=== PATIENT | female | born 1940 | race Caucasian/White ===

== ENCOUNTER 2017-09-22 17:32 | Emergency (ER) | payer MEDICARE ==
[2017-09-22] MEDS ORDERED: ANTIVERT 25 MG PO ONE (17:51)
[2017-09-22] MEDS ORDERED: ANTIVERT 25 MG ONE (17:57)
--- NOTE | 2017-09-22 17:57 | ERPHSYRPT ---
- History of Present Illness Source: patient Exam Limitations: no limitations Patient Subjective Stated Complaint: Pt states "I have vertigo and today it is really bad. I am out of my antivert and have been for a long time. IT gets worse when I lean over or move my head and I think it is in my left ear too" Triage Nursing Assessment: Pt alert and oriented X 3, skin pwd. Pt able to stand with assistance, speaks in full clear sentences. Hx Tetanus, Diphtheria Vaccination/Date Given: No Hx Influenza Vaccination/Date Given: Yes Hx Pneumococcal Vaccination/Date Given: Yes Immunizations Up to Date: Yes <SCOTT WOOTEN - Last Filed: 09/22/17 18:24> <ABELARDO KASPER - Last Filed: 09/22/17 20:59> - History of Present Illness Time Seen by Provider: 09/22/17 17:54 Physician History: mild to mod dizziness today, worse when turning her head, no injury, no hearing loss, no fever, no pain, +N, no emesis (SCOTT WOOTEN) Allergies/Adverse Reactions: cortisone Allergy (Mild, Verified 09/22/17 17:55) Home Medications: Allopurinol 300 mg [Zyloprim 300 mg] 300 mg PO DAILY 09/22/17 [History] Diazepam 2 mg PO HS 09/22/17 [History] Doxepin HCl 75 mg PO DAILY 09/22/17 [History] Duloxetine HCl [Cymbalta] 30 mg PO DAILY 09/22/17 [History] Metoprolol Succinate 25 mg PO DAILY 09/22/17 [History] Spironolactone [Aldactone] 25 mg PO DAILY 09/22/17 [History] - Past Medical History Pertinent Past Medical History: Yes Neurological History: No Pertinent History ENT History: No Pertinent History Cardiac History: Hypertension Respiratory History: No Pertinent History Endocrine Medical History: Hypothyroidism Musculoskeletal History: No Pertinent History GI Medical History: GERD History: Renal Disease Psycho-Social History: No Pertinent History Female Reproductive Disorders: No Pertinent History - Past Surgical History Past Surgical History: Yes Other Surgical History: hysterectomy, thyroid, eye, tonsils - Social History Smoking Status: Never smoker Exposure to second hand smoke: No Drug Use: none Patient Lives Alone: No - Female History Hx Last Menstrual Period: no more Hx Now: No <SCOTT WOOTEN - Last Filed: 09/22/17 18:24> - Review of Systems Constitutional: No Fever Eyes: No Symptoms Ears, Nose, & Throat: No Ear Pain Respiratory: No Symptoms Cardiac: No Symptoms Abdominal/Gastrointestinal: Nausea, No Abdominal Pain, No Vomiting Musculoskeletal: No Back Pain, No Neck Pain, No Fall Skin: No Symptoms Neurological: Dizziness, Vertigo, No Headache, No Speech Changes <SCOTT WOOTEN - Last Filed: 09/22/17 18:24> Physical Exam - Ellen Coma Scale Best Eye Response ([place]): (4) open spontaneously Best Verbal Response ([place]): (5) oriented Best Motor Response ([place]): (6) obeys commands [place] Total: 15 - Physical Exam General Appearance: no apparent distress Eye Exam: bilateral eye: PERRL, EOMI Ears, Nose, Throat Exam: normal ENT inspection Neck Exam: normal inspection Respiratory: normal breath sounds Cardiovascular: regular rate/rhythm Gastrointestinal: soft, No tenderness Extremity Exam: normal inspection 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, 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, 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 Exam: normal hearing, normal speech, PERRL Skin Exam: normal color, warm, dry SpO2 Interpretation: normal SpO2: 96 Oxygen Delivery: Room Air <SCOTT WOOTEN - Last Filed: 09/22/17 18:24> - Nursing Vital Signs Nursing Vital Signs: Initial Vital Signs Temperature 97.8 F 09/22/17 17:41 Pulse Rate 84 09/22/17 17:41 Respiratory Rate 18 09/22/17 17:41 Blood Pressure 158/74 09/22/17 17:41 O2 Sat by Pulse Oximetry 96 09/22/17 17:41 Pain Scale Pain Intensity 0 Ordered Tests: Active Orders 24 hr Category Date Time Status Yard Foreman STAT Care 09/22/17 17:53 Active EKG-ER Only STAT Care 09/22/17 17:51 Active IV Insertion STAT Care 09/22/17 17:51 Active HEAD WITHOUT CONTRAST [CT] Stat Exams 09/22/17 17:53 Taken CBC W DIFF Stat Lab 09/22/17 18:31 Completed CMP Stat Lab 09/22/17 18:31 Completed TROPONIN Q3H Lab 09/22/17 18:31 Completed TROPONIN Q3H Lab 09/22/17 21:00 Ordered TROPONIN Q3H Lab 09/23/17 00:00 Ordered TROPONIN Q3H Lab 09/23/17 03:00 Ordered TROPONIN Q3H Lab 09/23/17 06:00 Ordered Medication Summary Discontinued Medications Generic Name Dose Route Start Last Admin Trade Name John PRN Reason Stop Dose Admin Meclizine HCl 25 mg 09/22/17 17:51 09/22/17 18:09 Antivert 25 Mg PO 09/22/17 17:52 25 mg STAT ONE Administration Meclizine HCl Confirm 09/22/17 17:57 Antivert 25 Mg Administered 09/22/17 17:58 Dose 25 mg .ROUTE .STK-MED ONE Lab/Rad Data: Laboratory Result Diagrams 09/22/17 18:31 09/22/17 18:31 Laboratory Results 09/22/17 09/22/17 09/22/17 Range/Units 18:31 18:31 18:31 WBC 7.4 (4.0-10.5) K/mm3 RBC 3.60 L (4.1-5.4) M/mm3 Hgb 10.7 L (12.0-16.0) gm/dl Hct 33.7 L (35-47) % MCV 93.6 (78-100) fl MCH 29.7 (26-32) pg MCHC 31.8 L (32-36) g/dl RDW 14.1 H (11.5-14.0) % Plt Count 189 (150-450) K/mm3 MPV 9.7 H (6-9.5) fl Gran % 50.3 (36.0-66.0) % Lymphocytes % 38.9 (24.0-44.0) % Monocytes % 7.2 (0.0-12.0) % Eosinophils % 3.3 (0.00-5.0) % Basophils % 0.3 (0.0-0.4) % Basophils # 0.02 (0-0.4) Sodium 141 (136-145) mEq/L Potassium 5.1 (3.5-5.1) mEq/L Chloride 105 (98-107) mEq/L Carbon Dioxide 25.7 (21-32) mEq/L Anion Gap 15.1 H (5-15) MEQ/L BUN 23 H (9-20) mg/dL Creatinine 1.93 H (0.55-1.30) mg/dl Estimated GFR 27 ML/MIN Glucose 151 H (70-110) MG/DL Calcium 9.0 (8.5-10.1) mg/dL Total Bilirubin 0.30 (0.2-1.0) mg/dL AST 16 (15-37) U/L ALT 20 (12-78) U/L Alkaline Phosphatase 78 (46-116) U/L Troponin I < 0.017 (0.000-0.056) ng/ml Serum Total Protein 7.8 (6.4-8.2) gm/dL Albumin 3.9 (3.4-5.0) g/dL <SCOTT WOOTEN - Last Filed: 09/22/17 18:24> <ABELARDO KASPER - Last Filed: 09/22/17 20:59> - Progress Progress Note: 09/22/17 18:[address] Kasper at 19:00 (SCOTT WOOTEN) 09/22/17 20:54 This is a 77-year-old white female with history of high blood pressure hypothyroidism GERD renal disease She arrives with complaint of vertigo since 7:30 this morning worse when she moves her head around and walks. States that she has had similar symptoms in the past and has taken Antivert however she did not have any she is not sick no vomiting she is not having any problems moving. She has not had any speech problems. Past medical history includes hypertension hypothyroidism GERD renal disease. Past surgical history includes hysterectomy thyroid surgery eye surgery and tonsils. Physical examination well-developed well-nourished white female she is alert oriented 3. Head is atraumatic normocephalic. Eyes PERRLA EOMI fundi are unremarkable. Ears TM is monroy intact bilaterally. Nose is clear. Throat is clear. Neck is supple full range of motion. Lungs are clear to auscultation and equal bilaterally. Heart regular rate and rhythm without murmur. Abdomen soft nontender nondistended positive bowel sounds. Extremities full range of motion pulse equal symmetrical 2 over 4. Neuro patient alert, oriented 3, cranial nerves II through XII are intact, glazier structural glass are equal and symmetrical 5 over 5, stent finger-nose within normal limits , no facial droop, [place] normal, sensation intact to all extremities. Labs EKG sinus rhythm 82 bpm normal axis no acute ST or T wave changes noted essentially normal EKG head CT stable nonacute senile brain compared to June 17, 2014 patient's chemistry is essentially normal CBC is normal troponin is within normal limits Impression vertigo Plan Will have nurse ambulate patient plan on discharge with Antivert prescription (ABELARDO KASPER) <SCOTT WOOTEN - Last Filed: 09/22/17 18:24> - Departure Time of Disposition: 20:57 Departure Disposition: Home Critical Care Time: No <ABELARDO KASPER - Last Filed: 09/22/17 20:59> - Departure Clinical Impression: Vertigo Condition: Fair Referrals: RENATA WILKINSON MD [Primary Care Provider] - Instructions: Vertigo Additional Instructions: Return home. Plenty of fluids. Antivert 25 mg orally 3 times a day for 10 days. Follow-up with your family doctor contact your family doctor and arrange an appointment tomorrow. Return for acute distress or for severe symptoms. Prescriptions: Meclizine HCl 25 mg [Antivert 25 mg] 25 mg PO TID PRN #20 tablet
[2017-09-22 18:33] LABS: BASOPHIL % 0.3 % (0.0-0.4); Eosinophil % 3.3 % (0.00-5.0); Granulocytes % 50.3 % (36.0-66.0); Lymphocytes % 38.9 % (24.0-44.0); Mean Cell Volume 93.6 fl (78-100); Mean Corpuscular Hemoglobin 29.7 pg (26-32); Mean Platelet Volume 9.7 fl (6-9.5); Monocytes % 7.2 % (0.0-12.0); Platelet Count 189 K/mm3 (150-450); Red Cell Distribution Width 14.1 % (11.5-14.0); White Blood Count 7.4 K/mm3 (4.0-10.5)
[2017-09-22 19:08] LABS: ALBUMIN 3.9 g/dL (3.4-5.0); ANION GAP 15.1 MEQ/L (5-15); BILIRUBIN,TOTAL 0.3 mg/dL (0.2-1.0); Carbon Dioxide 25.7 mEq/L (21-32); Potassium 5.1 mEq/L (3.5-5.1); Total Protein 7.8 gm/dL (6.4-8.2)
[2017-09-22 22:35] VITALS: BP 170/79; PULSE 80; O2SAT 98
--- NOTE | 2017-09-23 08:34 | XRAY ---
Indication: Vertigo. Multiple contiguous axial images obtained through the head without contrast. Comparison: June 17, 2014. Again age-appropriate global atrophy and moderate periventricular degenerative micro-ischemia bilaterally. No acute intracranial hemorrhage, abnormal extra-axial fluid collection, or mass effect. Fourth ventricle is midline without hydrocephalus. Bony calvarium intact. Visualized paranasal sinuses and mastoid air cells are clear. Impression: Again nonacute senile brain. CT DI 68.81
== END 2017-09-22 22:35 | disposition home or self-care (01) ==
LOC: ED 17:32
DX: R42 Dizziness and giddiness (principal); Z79.899 Other long term (current) drug therapy; I10 Essential (primary) hypertension; E03.9 Hypothyroidism, unspecified
CPT/HCPCS: 36415; 70450; 80053; 84484; 85025; 93005; 93041; 99284; 99285; A9270-GY

== ENCOUNTER 2018-09-24 12:55 | Emergency (ER) | payer MEDICARE ==
--- NOTE | 2018-09-24 13:09 | ERPHSYRPT ---
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 following her dizzy spell, she was briefly confused but this resolved spontaneously as well. pt states she is back to her baseline and feeling well but wants to be evaluated. pt denies headache, denies cp, denies abd pain. Timing/Duration: today Severity: mild Character of Deficits: none (sx of dizziness and confusion resolved completely) Deficits: no difficulties Baseline/Normal Cognition: alert 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 Current Cognition: alert 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 Associated Symptoms: confusion, other (b rief izziness), No loss of consciousness, No nausea, No vomiting, No weakness, No insomnia Allergies/Adverse Reactions: Sulfa (Sulfonamide Antibiotics) Allergy (Intermediate, Verified 09/24/18 13:24) cortisone Allergy (Mild, Verified 09/24/18 13:23) Home Medications: Allopurinol 300 mg [Zyloprim 300 mg] 300 mg PO DAILY 09/22/17 [History] Doxepin HCl 75 mg PO DAILY 09/22/17 [History] Duloxetine HCl [Cymbalta] 30 mg PO DAILY 09/22/17 [History] Metoprolol Succinate 25 mg PO DAILY 09/22/17 [History] Spironolactone [Aldactone] 25 mg PO DAILY 09/22/17 [History] diazePAM [Diazepam] 2 mg PO HS 09/22/17 [History] Hx Tetanus, Diphtheria Vaccination/Date Given: No Hx Influenza Vaccination/Date Given: Yes Hx Pneumococcal Vaccination/Date Given: Yes - Review of Systems Constitutional: No Symptoms Eyes: No Symptoms Ears, Nose, & Throat: No Symptoms Respiratory: No Symptoms Cardiac: No Symptoms Abdominal/Gastrointestinal: No Symptoms Genitourinary Symptoms: No Symptoms Musculoskeletal: No Symptoms Skin: No Symptoms Neurological: Dizziness, Other (confusion) Psychological: No Symptoms Endocrine: No Symptoms Hematologic/Lymphatic: No Symptoms Immunological/Allergic: No Symptoms All Other Systems: Reviewed and Negative - Past Medical History Pertinent Past Medical History: Yes Neurological History: No Pertinent History ENT History: No Pertinent History Cardiac History: Hypertension Respiratory History: No Pertinent History Endocrine Medical History: Hypothyroidism Musculoskeletal History: No Pertinent History GI Medical History: GERD History: Renal Disease Psycho-Social History: No Pertinent History Female Reproductive Disorders: No Pertinent History - Past Surgical History Past Surgical History: Yes Cardiac: No Pertinent History Respiratory: No Pertinent History Gastrointestinal: No Pertinent History Genitourinary: No Pertinent History Musculoskeletal: No Pertinent History Female Surgical History: No Pertinent History Other Surgical History: hysterectomy, thyroid, eye, tonsils - Social History Smoking Status: Never smoker Exposure to second hand smoke: No Drug Use: none Patient Lives Alone: No - Nursing Vital Signs Nursing Vital Signs: Initial Vital Signs Temperature 98.5 F 09/24/18 12:55 Pulse Rate 70 09/24/18 12:55 Respiratory Rate 18 09/24/18 12:55 Blood Pressure 125/58 09/24/18 12:55 O2 Sat by Pulse Oximetry 97 09/24/18 12:55 Pain Scale Pain Intensity 0 - Ellen Coma Scale Best Eye Response ([place]): (4) open spontaneously Best Verbal Response ([place]): (5) oriented Best Motor Response ([place]): (6) obeys commands [place] Total: 15 - Physical Exam General Appearance: no apparent distress, alert Eye Exam: bilateral eye: normal inspection, PERRL, EOMI Ears, Nose, Throat Exam: normal ENT inspection, TMs normal, moist mucous membranes Neck Exam: normal inspection, non-tender, supple, full range of motion Respiratory: normal breath sounds, lungs clear, airway intact, No chest tenderness, No respiratory distress, No accessory muscle use, No rhonchi, No wheezing, No stridor Cardiovascular: regular rate/rhythm, normal heart sounds, normal peripheral pulses Gastrointestinal: soft, normal bowel sounds, No tenderness, No guarding, No rebound Pelvic Exam: not done Rectal Exam: not done Back Exam: normal inspection, normal range of motion, No CVA tenderness, No vertebral tenderness Extremity Exam: normal inspection, normal range of motion, pelvis stable 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, 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, 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 Exam: normal hearing, normal speech, PERRL, tongue midline Coordination/Gait: normal finger to nose, normal gait Motor/Sensory: no motor deficit, no sensory deficit, no pronator drift Skin Exam: normal color, warm, dry SpO2 Interpretation: normal Oxygen Delivery: Room Air - Course Nursing assessment & vital signs reviewed: Yes EKG Interpreted by Me: RATE (66), Sinus Rhythm, NORMAL AXIS, NORMAL INTERVALS, NORMAL QRS, Other (no change from normal ekg dated 09/22/17) Ordered Tests: Active Orders 24 hr Category Date Time Status Web Marketing Strategist STAT Care 09/24/18 13:34 Active Clean Catch Urine Specimen STAT Care 09/24/18 13:33 Active EKG-ER Only STAT Care 09/24/18 13:33 Active IV Insertion STAT Care 09/24/18 13:33 Active HEAD WITHOUT CONTRAST [CT] Stat Exams 09/24/18 13:34 Completed CBC W DIFF Stat Lab 09/24/18 13:30 Completed CMP Stat Lab 09/24/18 13:30 Completed CULTURE,URINE Stat Lab 09/24/18 14:11 Received UA W/RFX UR CULTURE Stat Lab 09/24/18 14:11 Completed Medication Summary Discontinued Medications Generic Name Dose Route Start Last Admin Trade Name Freq PRN Reason Stop Dose Admin Sodium Chloride 500 mls @ 500 mls/hr 09/24/18 13:34 09/24/18 14:15 Sodium Chloride 0.9% 500 Ml IV 09/24/18 14:33 500 mls/hr .Q1H ONE Administration Sodium Chloride Confirm 09/24/18 13:59 Sodium Chloride 0.9% 500 Ml Administered 09/24/18 14:00 Dose 500 mls @ ud IV .STK-MED ONE Ceftriaxone Sodium/Dextrose 1 g in 50 mls @ 100 mls/hr 09/24/18 14:46 15:01 Rocephin 1 Gm-D5w 50 Ml Bag IV 09/24/18 15:15 100 ml/hr STAT STA 100 mls/hr Administration Ceftriaxone Sodium/Dextrose Confirm 09/24/18 15:00 Rocephin 1 Gm-D5w 50 Ml Bag Administered 09/24/18 15:01 Dose 1 g in 50 mls @ ud IV .STK-MED ONE Lab/Rad Data: Laboratory Result Diagrams 09/24/18 13:30 09/24/18 13:30 Laboratory Results 09/24/18 09/24/18 09/24/18 Range/Units 14:11 13:30 13:30 WBC 7.8 (4.0-10.5) K/mm3 RBC 3.86 L (4.1-5.4) M/mm3 Hgb 11.6 L (12.0-16.0) gm/dl Hct 35.3 (35-47) % MCV 91.5 (78-100) fl MCH 30.0 (26-32) pg MCHC 32.9 (32-36) g/dl RDW 13.8 (11.5-14.0) % Plt Count 260 (150-450) K/mm3 MPV 10.3 H (6-9.5) fl Gran % 59.6 (36.0-66.0) % Eos # (Auto) 0.20 (0-0.5) Absolute Lymphs (auto) 2.42 (1.0-4.6) Absolute Monos (auto) 0.48 (0.0-1.3) Lymphocytes % 31.0 (24.0-44.0) % Monocytes % 6.2 (0.0-12.0) % Eosinophils % 2.6 (0.00-5.0) % Basophils % 0.6 (0.0-0.4) % Absolute Granulocytes 4.65 (1.4-6.9) Basophils # 0.05 (0-0.4) Sodium 143 (137-145) mmol/L Potassium 3.3 L (3.5-5.1) mmol/L Chloride 102 (98-107) mmol/L Carbon Dioxide 26 (22-30) mmol/L Anion Gap 17.2 H (5-15) MEQ/L BUN 21 H (7-17) mg/dL Creatinine 1.61 H (0.52-1.04) mg/dL Estimated GFR 32.8 ML/MIN Glucose 144 H (74-106) mg/dL Calcium 9.0 (8.4-10.2) mg/dL Total Bilirubin 0.60 (0.2-1.3) mg/dL AST 23 (14-36) U/L ALT 17 (0-35) U/L Alkaline Phosphatase 65 (38-126) U/L Serum Total Protein 7.9 (6.3-8.2) g/dL Albumin 4.8 (3.5-5.0) g/dL Urine Color YELLOW (YELLOW) Urine Appearance HAZY (CLEAR) Urine pH 7.0 (5-6) Ur Specific [place] 1.010 (1.005-1.025) Urine Protein 3+ (Negative) Urine Ketones NEGATIVE (NEGATIVE) Urine Blood NEGATIVE (0-5) [place]/ul Urine Nitrite NEGATIVE (NEGATIVE) Urine Bilirubin SMALL (NEGATIVE) Urine Urobilinogen NORMAL (0-1) mg/dL Ur Leukocyte Esterase 2+ (NEGATIVE) Urine WBC (Auto) 6-10 (0-5) /HPF Urine RBC (Auto) NONE (0-2) /HPF U Epithel Cells (Auto) PACKED (FEW) /HPF Urine Bacteria (Auto) FEW (NEGATIVE) /HPF Urine Culture Reflexed YES (NO) Urine Glucose NEGATIVE (NEGATIVE) mg/dL - Progress Progress: improved, re-examined Progress Note: 09/24/18 15:06 pt states shes a little sleepy but overall feels good. ct brain-no acute process 09/24/18 15:39 pt states she feels good, just tired. Counseled pt/family regarding: lab results, diagnosis, rad results - Departure Time of Disposition: 16:18 Departure Disposition: Home Clinical Impression: UTI (urinary tract infection), Dizziness Condition: Stable Critical Care Time: No Referrals: RENATA WILKINSON MD [Primary Care Provider] - Additional Instructions: drink plenty of fluids. take medications as prescribed. follow up with primary doctor for further management. Prescriptions: Ciprofloxacin [Cipro 500 MG] 500 mg PO BID #14 tablet
[2018-09-24] MEDS ORDERED: Sodium Chloride 0.9% 500 ML 500 ML IV ONE ×2 (13:34→13:59)
[2018-09-24 13:58] LABS: BASOPHIL % 0.6 % (0.0-0.4); Basophil (Absolute #) 0.05 (0-0.4); Eosinophil % 2.6 % (0.00-5.0); Granulocyte Absolute (ANC) 4.65 (1.4-6.9); Granulocytes % 59.6 % (36.0-66.0); Hematocrit 35.3 % (35-47); Hemoglobin 11.6 gm/dl (12.0-16.0); Lymphocyte (Absolute #) 2.42 (1.0-4.6); Mean Cell Volume 91.5 fl (78-100); Mean Corpuscular Hgb Concent. 32.9 g/dl (32-36); Mean Platelet Volume 10.3 fl (6-9.5); Monocyte (Absolute #) 0.48 (0.0-1.3); Monocytes % 6.2 % (0.0-12.0); Platelet Count 260 K/mm3 (150-450); Red Blood Count 3.86 M/mm3 (4.1-5.4); Red Cell Distribution Width 13.8 % (11.5-14.0); White Blood Count 7.8 K/mm3 (4.0-10.5)
[2018-09-24 14:09] LABS: ALBUMIN 4.8 g/dL (3.5-5.0); ANION GAP 17.2 MEQ/L (5-15); BILIRUBIN,TOTAL 0.6 mg/dL (0.2-1.3); Creatinine 1 1.61 mg/dL (0.52-1.04); Potassium 3.3 mmol/L (3.5-5.1); Total Protein 7.9 g/dL (6.3-8.2)
--- NOTE | 2018-09-24 14:10 | XRAY ---
Indication: Dizziness and near syncope. No known injury. Multiple contiguous axial images obtained through the head without contrast. Comparison: September 22, 2017. Stable age-appropriate global atrophy and moderate periventricular degenerative micro-ischemia bilaterally. No acute intracranial hemorrhage, abnormal extra-axial fluid collection, or mass effect. Fourth ventricle is midline without hydrocephalus. Bony calvarium intact. Visualized paranasal sinuses and mastoid air cells are clear. Impression: Stable nonacute senile brain. CTDI 69.79
[2018-09-24 14:22] VITALS: PULSE 60; O2SAT 98
[2018-09-24 14:27] LABS: Appearance HAZY (CLEAR); Bilirubin SMALL (NEGATIVE); Glucose NEGATIVE (NEGATIVE); Ketones NEGATIVE (NEGATIVE); Leukocyte Esterase 2+ (NEGATIVE); Nitrite NEGATIVE (NEGATIVE); Protein,Urine Dip 3+ (Negative); Urobilinogen NORMAL mg/dL (0-1)
[2018-09-24 14:28] LABS: Blood NEGATIVE Ery/ul (0-5)
[2018-09-24] MEDS ORDERED: ROCEPHIN 1 Gm-D5w 50 ml Bag** 1 G/50 ML IVPB IV STA (14:46)
[2018-09-24] MEDS ORDERED: ROCEPHIN 1 Gm-D5w 50 ml Bag** 1 G/50 ML IVPB IV ONE (15:00)
[2018-09-24 16:33] VITALS: BP 116/62
== END 2018-09-24 17:28 | disposition home or self-care (01) ==
LOC: ED 12:55
DX: N39.0 Urinary tract infection, site not specified (principal); R42 Dizziness and giddiness; Z79.899 Other long term (current) drug therapy
CPT/HCPCS: 36000; 36415; 70450; 80053; 81001; 85025; 87077; 87086; 87186; 93005; 93041; 99284; J0696

== ENCOUNTER 2019-06-25 17:24 | Emergency (ER) | payer MEDICARE ==
--- NOTE | 2019-06-25 17:57 | ERPHSYRPT ---
- History of Present Illness Time Seen by Provider: 06/25/19 17:50 Exam Limitations: no limitations Patient Subjective Stated Complaint: pt reports fall from standing onto a sidewalk approx 1500. states she was walking into hobby lobby when she tripped causing her fall. pt reports she fell forward striking her hands, tops of her feet and face on the sidewalk. pt denies LOC. Triage Nursing Assessment: pt is aox3, pupils perrl, afebrile, resps easy and non labored, radial pulses strong and equal, cap refill < 3 seconds, pt skin pink warm dry. hematoma noted to the left orbital area skin is intact at this time. Physician History: Fell prior to coming into the emergency department, hitting her left side of her face and head on the ground. Patient fell after tripping from a standing position. Occurred: hours ago (2) Severity: moderate Head Injury Location: frontal Method of Injury: fell Loss of Consciousness: no loss of consciousness Associated Symptoms: No nausea, No vomiting, No abdominal pain, No shortness of breath, No diaphoresis, No cough, No chest pain, No fever, No headaches, No malaise, No syncope, No seizure, No weakness Allergies/Adverse Reactions: Sulfa (Sulfonamide Antibiotics) Allergy (Intermediate, Verified 09/24/18 13:24) cortisone Allergy (Mild, Verified 09/24/18 13:23) prednisone Allergy (Verified 06/25/19 17:38) Home Medications: Allopurinol 300 mg [Zyloprim 300 mg] 300 mg PO DAILY 09/22/17 [History] Doxepin HCl 75 mg PO DAILY 09/22/17 [History] Duloxetine HCl [Cymbalta] 30 mg PO DAILY 09/22/17 [History] Metoprolol Succinate 25 mg PO DAILY 09/22/17 [History] Spironolactone [Aldactone] 25 mg PO DAILY 09/22/17 [History] diazePAM [Diazepam] 2 mg PO HS 09/22/17 [History] Hx Tetanus, Diphtheria Vaccination/Date Given: (unk) Hx Influenza Vaccination/Date Given: Yes Hx Pneumococcal Vaccination/Date Given: Yes Immunizations Up to Date: Yes - Review of Systems Constitutional: No Fever, No Chills, No Weakness Eyes: No Eye Pain, No Photophobia Ears, Nose, & Throat: No Nose Pain, No Nose Congestion, No Sinus Drainage, No Epistaxis, No Mouth Swelling, No Loose Teeth Respiratory: No Cough, No Dyspnea Cardiac: No Chest Pain, No Edema, No Syncope Abdominal/Gastrointestinal: No Abdominal Pain, No Nausea, No Vomiting, No Diarrhea Genitourinary Symptoms: No Dysuria Musculoskeletal: No Back Pain, No Neck Pain Skin: No Rash Neurological: No Dizziness, No Focal Weakness, No Headache, No Lethargy, No Sensory Changes Psychological: No Alcohol Abuse, No Hallucinations Endocrine: No Symptoms Hematologic/Lymphatic: No Easy Bleeding, No Easy Bruising All Other Systems: Reviewed and Negative - Past Medical History Pertinent Past Medical History: Yes Neurological History: No Pertinent History ENT History: No Pertinent History Cardiac History: Hypertension Respiratory History: No Pertinent History Endocrine Medical History: Hypothyroidism Musculoskeletal History: No Pertinent History GI Medical History: GERD History: Renal Disease Psycho-Social History: No Pertinent History Female Reproductive Disorders: No Pertinent History - Past Surgical History Past Surgical History: Yes Cardiac: No Pertinent History Respiratory: No Pertinent History Gastrointestinal: No Pertinent History Genitourinary: No Pertinent History Musculoskeletal: No Pertinent History Female Surgical History: No Pertinent History Other Surgical History: hysterectomy, thyroid, eye, tonsils - Social History Smoking Status: Never smoker Exposure to second hand smoke: No Drug Use: none Patient Lives Alone: No - Female History Hx Now: No - Nursing Vital Signs Nursing Vital Signs: Initial Vital Signs Temperature 98 F 06/25/19 17:27 Pulse Rate 90 06/25/19 17:27 Respiratory Rate 20 06/25/19 17:27 Blood Pressure 198/91 06/25/19 17:27 O2 Sat by Pulse Oximetry 97 06/25/19 17:27 Pain Scale Pain Intensity 0 - Ellen Coma Score Best Eye Response ([place]): (4) open spontaneously Best Verbal Response (Ellen): (5) oriented Best Motor Response ([place]): (6) obeys commands Ellen Total: 15 - Physical Exam General Appearance: no apparent distress, alert Head Injury: ecchymosis, swelling, tenderness, No active bleeding, No Mendoza's Sign, No flap, No lacerations, No raccoon eyes Eye Exam: left eye: periorbital ecchymosis, bilateral eye: normal inspection ( no signs of globe rupture, negative hyphema with normal pupils bilaterally), PERRL, EOMI ENT Exam: airway nml, hearing grossly normal, other (periorbital ecchymosis on the left side with tenderness to infraorbital and supraorbital/lower forehead area), No dental injury, No clear fluid (ears), No clear fluid (nose), No midface instability, No hemotympanum, No clotted nasal blood, No malocclusion Neck Exam: supple, trachea midline, normal alignment, normal inspection, No focal neuro deficit, No limited range of motion Cardiovascular/Respiratory Exam: chest non-tender, normal breath sounds, regular rate/rhythm Gastrointestinal/Abdominal Exam: soft, non tender, no distention Back Exam: normal inspection, No CVA tenderness, No vertebral tenderness Extremity Exam: non-tender, normal range of motion, normal inspection Mental Status Exam: alert, 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, 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 Exam: normal hearing, normal speech, PERRL Coordination/Gait Exam: normal cerebellar function Motor/Sensory Exam: no motor deficit, no sensory deficit, CN II-XII intact Skin Exam: normal color, warm, dry, ecchymosis, other (ecchymosis left periorbital area), No rash, No abrasion SpO2 Interpretation: normal SpO2: 97 O2 Delivery: Room Air - Course Nursing assessment & vital signs reviewed: Yes - CT Exams Head CT Interpretation: Negative, Other (per radiologist's interpretation: Stable nonacute seen out compared to 09/24/2018 CT scan) Maxillofacial Bones CT Interpretation: Other (per radiologist interpretation: Left facial soft tissue swelling with 1.6 cm focus of hematoma. Bilateral TMJ subluxation. Otherwise negative for any fractures) Cervical Spine CT Interpretation: No Fracture, Other (per radiologist interpretation: Mild-to- moderate C3-C7 degenerative disc disease. Negative for fracture, negative for subluxation.) Ordered Tests: Active Orders 24 hr Category Date Time Status CERVICAL SPINE WO CONTRAST [CT] Stat Exams 06/25/19 17:54 Taken FACIAL BONES WO CONTRAST [CT] Stat Exams 06/25/19 17:54 Taken HEAD WITHOUT CONTRAST [CT] Stat Exams 06/25/19 17:54 Taken Medication Summary Discontinued Medications Generic Name Dose Route Start Last Admin Trade Name Freq PRN Reason Stop Dose Admin Clonidine 0.1 mg 06/25/19 17:55 06/25/19 18:15 Catapres 0.1 Mg PO 06/25/19 17:56 0.1 mg STAT ONE Administration Clonidine Confirm 06/25/19 18:14 Catapres 0.1 Mg Administered 06/25/19 18:15 Dose 0.1 mg .ROUTE .STK-MED ONE Clonidine 0.2 mg 06/25/19 20:09 06/25/19 20:10 Catapres 0.1 Mg PO 06/25/19 20:10 0.2 mg STAT ONE Administration Clonidine Confirm 06/25/19 20:09 Catapres 0.1 Mg Administered 06/25/19 20:10 Dose 0.2 mg .ROUTE .STK-MED ONE - Progress Progress: improved Progress Note: 06/25/19 21:28 Patient's blood pressure after giving a total of 0.3mg of clonidine orally. Patient has no neurologic deficits and her GCS has remained 15 throughout her time in the emergency department. Counseled pt/family regarding: diagnosis, need for follow-up, rad results - Departure Departure Disposition: Home Clinical Impression: DDD (degenerative disc disease), cervical Periorbital contusion of left eye Qualifiers: Encounter type: initial encounter Qualified Code(s): S05.12XA - Contusion of eyeball and orbital tissues, left eye, initial encounter Hypertension Qualifiers: Hypertension type: essential hypertension Qualified Code(s): I10 - Essential ( primary) hypertension Temporomandibular subluxation Qualifiers: Encounter type: initial encounter Qualified Code(s): S03.00XA - Dislocation of jaw, unspecified side, initial encounter Condition: Good Critical Care Time: No Referrals: RENATA WILKINSON MD [Primary Care Provider] - Follow Up with PCP/3 days Instructions: Preventing Falls, Contusion (DC), High Blood Pressure (DC) Additional Instructions: Return if any worse at any time for immediate re-evaluation in the emergency department.
[2019-06-25] MEDS ORDERED: Catapres 0.1 MG ONE ×2 (18:14→20:09)
[2019-06-25] MEDS: Catapres 0.1 MG PO ONE ×2 (18:15→20:10)
[2019-06-25 21:30] VITALS: BP 168/77; PULSE 62
[2019-06-25 21:31] VITALS: O2SAT 97
--- NOTE | 2019-06-25 21:45 | XRAY ---
Indication: Left facial bruising and swelling following fall. Multiple contiguous axial images obtained through the cervical spine. Sagittal and coronal reformatted images obtained. Comparison: None. Craniocervical junction and C1 images slightly degraded by motion artifact. Axial images negative for acute fracture, suspicious bony lesions, or spinal canal stenosis. Mild/moderate C3-C7 degenerative endplate spurring. Sagittal and coronal reformatted images demonstrates C3-C7 disc space narrowing. No acute compression fracture, subluxation, or jumped facet. Normal appearing craniocervical junction. Visualized noncontrasted soft tissues demonstrates minimal scattered vascular calcifications bilaterally. CT facial bones and CT head reported separately. Impression: 1. Negative acute fracture/subluxation. 2. C3-C7 degenerative changes. CTDI 54.23
--- NOTE | 2019-06-25 21:46 | XRAY ---
Indication: Left facial bruising and swelling following fall. Multiple contiguous axial images obtained through the head without contrast. Comparison: September 24, 2018. Stable age-appropriate global atrophy and moderate periventricular degenerative microvascular ischemia bilaterally. No acute intracranial hemorrhage, abnormal extra-axial fluid collection, or mass effect. Fourth ventricle is midline without hydrocephalus. Bony calvarium intact. Visualized paranasal sinuses and mastoid air cells are clear. CT facial bones and CT cervical spine reported separately. Impression: Stable nonacute senile brain. CTDI 69.38
--- NOTE | 2019-06-25 21:47 | XRAY ---
Indication: Left facial bruising and swelling following fall. Multiple contiguous axial images obtained through the facial bones. Sagittal and coronal reformatted images obtained. Comparison: None. Inferior images are slightly degraded by motion artifact. There are also bilateral dental amalgams producing beam artifact limiting these levels. Moderate left facial soft tissue swelling/edema with 1.5 cm focus of subcutaneous fluid probable hematoma. No acute fracture, suspicious bony lesions, or radiopaque foreign body. Orbits including roof, us, and floors intact. Paranasal sinuses and nasal passages are clear. Both mandible condyles are slightly subluxed anteriorly. Visualized noncontrasted soft tissues unremarkable. CT cervical spine and CT head reported separately. Impression: 1. Left facial soft tissue swelling with small focus of subcutaneous hematoma. 2. Incidental bilateral TMJ subluxation. 3. Remaining CT facial bones negative. CTDI 59.47
== END 2019-06-25 21:38 | disposition home or self-care (01) ==
LOC: ED 17:24
DX: M50.30 Other cervical disc degeneration, unspecified cervical region (principal); S05.12XA Contusion of eyeball and orbital tissues, left eye, initial encounter; I10 Essential (primary) hypertension; S03.00XA Dislocation of jaw, unspecified side, initial encounter; W01.198A Fall on same level from slipping, tripping and stumbling with subsequent striking against other object, initial encounter; Y93.01 Activity, walking, marching and hiking; Y92.480 Sidewalk as the place of occurrence of the external cause
CPT/HCPCS: 70450; 70486; 72125; 99284; A9270-GY

== ENCOUNTER 2021-03-09 10:53 | Observation (INO) | payer MEDICARE ==
[2021-03-09 11:18] LABS: Absolute Neutrophil Ct (ANC) 3.58 (1.4-6.9); BASOPHIL % 0.6 % (0.0-0.4); Basophil (Absolute #) 0.04 (0-0.4); Eosinophil % 3.5 % (0.00-5.0); Eosinophil (Absolute #) 0.23 (0-0.5); Hematocrit 33.3 % (35-47); Hemoglobin 10.6 gm/dl (12.0-16.0); Lymphocyte (Absolute #) 2.28 (1.0-4.6); Lymphocytes % 34.4 % (24.0-44.0); Mean Cell Volume 90.2 fl (78-100); Mean Corpuscular Hemoglobin 28.7 pg (26-32); Mean Corpuscular Hgb Concent. 31.8 g/dl (32-36); Mean Platelet Volume 9.9 fl (7.5-11.0); Monocyte (Absolute #) 0.49 (0.0-1.3); Monocytes % 7.4 % (0.0-12.0); Neutrophil % 54.1 % (36.0-66.0); Platelet Count 212 K/mm3 (150-450); Red Blood Count 3.69 M/mm3 (4.1-5.4); Red Cell Distribution Width 14.2 % (11.5-14.0); White Blood Count 6.6 K/mm3 (4.0-10.5)
[2021-03-09 11:21] LABS: INR 1.11 (0.8-3.0); PROTIME 12.6 SECONDS (9.95-12.35)
[2021-03-09 11:23] LABS: PTT 28.5 SECONDS (25.3-37.0)
--- NOTE | 2021-03-09 11:32 | XRAY ---
Indication: COPD. Stroke. Comparison: April 30, 2009. Portable chest demonstrates new minimal left base subsegmental atelectasis/scarring. Remaining heart and lungs normal. Bony thorax intact again with mild degenerative changes and scoliosis.
[2021-03-09 11:34] LABS: ALBUMIN 4.5 g/dL (3.5-5.0); ANION GAP 14.8 MEQ/L (5-15); BILIRUBIN,TOTAL 0.6 mg/dL (0.2-1.3); Creatinine 1 1.55 mg/dL (0.52-1.04); EST GLOMERULAR FILTRATION RATE 34.1 ML/MIN; Potassium 3.8 mmol/L (3.5-5.1); Total Protein 7.7 g/dL (6.3-8.2)
--- NOTE | 2021-03-09 11:36 | ERPHSYRPT ---
- History of Present Illness Time Seen by Provider: 03/09/21 11:01 Source: patient Exam Limitations: no limitations Patient Subjective Stated Complaint: Pt states around midnight last night began having left sided numbness and slurred speech. Pt reports face, upper, and l ower extremities. Denies headache, dizziness, difficulty walking. Triage Nursing Assessment: Pt transfers without difficulty. No facial droop or slurred speech noted. 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 Physician History: 80 years old female with history of hypertension presented in the ER with chief complaint of sudden onset numbness left half of body with some slurring of speech around 1230 last night. Reports slurring of speech lasting for only few minutes and improved but still have persistent numbness in the left face/upper extremity and left thigh area without any focal weakness. Denies any visual symptoms. Denies any chest pain palpitations or shortness of breath. No abdominal pain nausea or vomiting. No previous history of stroke. No facial asymmetry or difficulty swallowing. Patient has a blood pressure 199 systolic, reports missing her dose of antihypertensive this morning. Timing/Duration: hour(s) (11), constant, sudden Severity: moderate Character of Deficits: altered sensation Deficits: no difficulties Baseline/Normal Cognition: alert 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 Current Cognition: alert 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 Baseline Gait: walks w/o assistance Associated Symptoms: numbness/tingling in legs/feet, slurred speech Allergies/Adverse Reactions: Sulfa (Sulfonamide Antibiotics) Allergy (Intermediate, Verified 03/09/21 11:24) cortisone Allergy (Mild, Verified 03/09/21 11:24) prednisone Allergy (Verified 03/09/21 11:24) Home Medications: Allopurinol 300 mg [Zyloprim 300 mg] 300 mg PO DAILY 09/22/17 [History] Doxepin HCl 75 mg PO QPM 09/22/17 [History] Metoprolol Succinate 25 mg PO DAILY 09/22/17 [History] Hydrochlorothiazide/Amilor HCl [Moduretic] 1 tab PO BID 03/09/21 [History] Hx Tetanus, Diphtheria Vaccination/Date Given: (unk) Hx Influenza Vaccination/Date Given: Yes (fall 2019) Hx Pneumococcal Vaccination/Date Given: Yes Travel Risk - International Travel Have you traveled outside of the country in past 3 weeks: No - Coronavirus Screening Are you exhibiting any of the following symptoms?: No Close contact with a COVID-19 positive Pt in past 14-21 Days: No - Vaccine Status Have you recieved a Covid-19 vaccination: Yes 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: [employer] - Vaccination Dates Date of 2cond Vaccination (if applicable): 12/10 - Review of Systems Constitutional: No Symptoms Eyes: No Symptoms Ears, Nose, & Throat: No Symptoms Respiratory: No Symptoms Cardiac: No Symptoms Abdominal/Gastrointestinal: No Symptoms Genitourinary Symptoms: No Symptoms Musculoskeletal: No Symptoms Skin: No Symptoms Neurological: Sensory Changes Psychological: No Symptoms Endocrine: No Symptoms Hematologic/Lymphatic: No Symptoms Immunological/Allergic: No Symptoms - Past Medical History Pertinent Past Medical History: Yes Neurological History: No Pertinent History ENT History: No Pertinent History Cardiac History: Hypertension Respiratory History: COPD Endocrine Medical History: Hypothyroidism Musculoskeletal History: No Pertinent History GI Medical History: GERD History: Renal Disease Psycho-Social History: No Pertinent History Female Reproductive Disorders: No Pertinent History - Past Surgical History Past Surgical History: Yes Cardiac: No Pertinent History Respiratory: No Pertinent History Gastrointestinal: No Pertinent History Genitourinary: No Pertinent History Musculoskeletal: No Pertinent History Female Surgical History: No Pertinent History Other Surgical History: hysterectomy, thyroid, eye, tonsils - Social History Smoking Status: Never smoker Exposure to second hand smoke: No Drug Use: none Patient Lives Alone: No - Female History Hx Last Menstrual Period: post Hx Now: No (N) - Nursing Vital Signs Nursing Vital Signs: Initial Vital Signs Pulse Rate 72 03/09/21 10:55 Respiratory Rate 16 03/09/21 10:55 Blood Pressure 182/76 03/09/21 10:55 O2 Sat by Pulse Oximetry 96 03/09/21 10:55 Pain Scale Pain Intensity 4 - Ellen Coma Scale Best Eye Response ([place]): (4) open spontaneously Best Verbal Response (Ellen): (5) oriented Best Motor Response ([place]): (6) obeys commands Ellen Total: 15 - Physical Exam General Appearance: no apparent distress, alert Eye Exam: bilateral eye: normal inspection, PERRL, EOMI Ears, Nose, Throat Exam: normal ENT inspection Neck Exam: normal inspection, non-tender, supple, full range of motion Respiratory: normal breath sounds, lungs clear Cardiovascular: regular rate/rhythm, normal heart sounds Gastrointestinal: soft, normal bowel sounds, No tenderness Extremity Exam: normal inspection, normal range of motion 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, 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, 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 Exam: normal hearing, normal speech, PERRL, No facial asymmetry Coordination/Gait: normal finger to nose, normal gait, normal cerebellar function Motor/Sensory: no motor deficit, no pronator drift, negative Babinski's sign, sensory deficit (Mild decrease sensation of fine touch in left upper extremity/face) Skin Exam: normal color SpO2 Interpretation: normal SpO2: 96 O2 Delivery: Room Air Ordered Tests: Active Orders 24 hr Category Date Time Status 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 Care 03/09/21 11:03 Active EKG-ER Only STAT Care 03/09/21 11:02 Active IV Insertion STAT Care 03/09/21 11:02 Active NPO (ED) STAT Care 03/09/21 11:02 Active POCT Glucose Check STAT Care 03/09/21 11:02 Active CAROTID BILATERAL [US] Stat Exams 03/09/21 Ordered CHEST 1 VIEW (PORTABLE) Stat Exams 03/09/21 11:02 Completed ECHO W/2D AND DOPPLER [US] Stat Exams 03/09/21 Ordered HEAD WITHOUT CONTRAST [CT] Routine Exams 03/09/21 11:01 Completed CBC W DIFF Stat Lab 03/09/21 11:14 Completed CMP Stat Lab 03/09/21 11:14 Completed NT PRO BNP Stat Lab 03/09/21 11:14 Completed POCT GLUCOSE Stat Lab 03/09/21 11:09 Completed PROTIME WITH INR Stat Lab 03/09/21 11:14 Completed PTT Stat Lab 03/09/21 11:14 Completed TROPONIN Q3H Lab 03/09/21 11:14 Completed TROPONIN Q3H Lab 03/09/21 13:52 Received TROPONIN Q3H Lab 03/09/21 17:15 Ordered TROPONIN Q3H Lab 03/09/21 20:15 Ordered TROPONIN Q3H Lab 03/09/21 23:15 Ordered UA W/RFX UR CULTURE Stat Lab 03/09/21 13:06 Completed Transfer Order Routine Transfer 03/09/21 Ordered Lab/Rad Data: Laboratory Result Diagrams 03/09/21 11:14 03/09/21 11:14 Laboratory Results 03/09/21 03/09/21 03/09/21 Range/Units 13:06 11:14 11:14 WBC (4.0-10.5) K/mm3 RBC (4.1-5.4) M/mm3 Hgb (12.0-16.0) gm/dl Hct (35-47) % MCV (78-100) fl MCH (26-32) pg MCHC (32-36) g/dl RDW (11.5-14.0) % Plt Count (150-450) K/mm3 MPV (7.5-11.0) fl Gran % (36.0-66.0) % Eos # (Auto) (0-0.5) Absolute Lymphs (auto) (1.0-4.6) Absolute Monos (auto) (0.0-1.3) Lymphocytes % (24.0-44.0) % Monocytes % (0.0-12.0) % Eosinophils % (0.00-5.0) % Basophils % (0.0-0.4) % Absolute Granulocytes (1.4-6.9) Basophils # (0-0.4) PT (9.95-12.35) SECONDS INR (0.8-3.0) APTT (25.3-37.0) SECONDS Sodium 142 (137-145) mmol/L Potassium 3.8 (3.5-5.1) mmol/L Chloride 104 (98-107) mmol/L Carbon Dioxide 26 (22-30) mmol/L Anion Gap 14.8 (5-15) MEQ/L BUN 30 H (7-17) mg/dL Creatinine 1.55 H (0.52-1.04) mg/dL Estimated GFR 34.1 ML/MIN Glucose 125 H (74-106) mg/dL POC Glucometer (74 to 106) mg/dL Calcium 9.0 (8.4-10.2) mg/dL Total Bilirubin 0.60 (0.2-1.3) mg/dL AST 22 (14-36) U/L ALT 10 (0-35) U/L Alkaline Phosphatase 60 (38-126) U/L Troponin I < 0.012 (0.000-0.034) ng/mL NT-Pro-B Natriuret Pep 720 (0-1800) pg/mL Serum Total Protein 7.7 (6.3-8.2) g/dL Albumin 4.5 (3.5-5.0) g/dL Urine Color YELLOW (YELLOW) Urine Appearance CLEAR (CLEAR) Urine pH 6.0 (5-6) Ur Specific [place] 1.012 (1.005-1.025) Urine Protein 30 (Negative) Urine Ketones NEGATIVE (NEGATIVE) Urine Blood NEGATIVE (0-5) Camilo/ul Urine Nitrite NEGATIVE (NEGATIVE) Urine Bilirubin NEGATIVE (NEGATIVE) Urine Urobilinogen NEGATIVE (0-1) mg/dL Ur Leukocyte Esterase NEGATIVE (NEGATIVE) Urine WBC (Auto) NONE (0-5) /HPF Urine RBC (Auto) NONE SEEN (0-2) /HPF U Epithel Cells (Auto) RARE (FEW) /HPF Urine Bacteria (Auto) NONE (NEGATIVE) /HPF Urine Mucus (Auto) SLIGHT (NEGATIVE) /HPF Urine Culture Reflexed NO (NO) Urine Glucose NEGATIVE (NEGATIVE) mg/dL 03/09/21 03/09/21 03/09/21 Range/Units 11:14 11:14 11:09 WBC 6.6 (4.0-10.5) K/mm3 RBC 3.69 L (4.1-5.4) M/mm3 Hgb 10.6 L (12.0-16.0) gm/dl Hct 33.3 L (35-47) % MCV 90.2 (78-100) fl MCH 28.7 (26-32) pg MCHC 31.8 L (32-36) g/dl RDW 14.2 H (11.5-14.0) % Plt Count 212 (150-450) K/mm3 MPV 9.9 (7.5-11.0) fl Gran % 54.1 (36.0-66.0) % Eos # (Auto) 0.23 (0-0.5) Absolute Lymphs (auto) 2.28 (1.0-4.6) Absolute Monos (auto) 0.49 (0.0-1.3) Lymphocytes % 34.4 (24.0-44.0) % Monocytes % 7.4 (0.0-12.0) % Eosinophils % 3.5 (0.00-5.0) % Basophils % 0.6 (0.0-0.4) % Absolute Granulocytes 3.58 (1.4-6.9) Basophils # 0.04 (0-0.4) PT 12.6 H (9.95-12.35) SECONDS INR 1.11 (0.8-3.0) APTT 28.5 (25.3-37.0) SECONDS Sodium (137-145) mmol/L Potassium (3.5-5.1) mmol/L Chloride (98-107) mmol/L Carbon Dioxide (22-30) mmol/L Anion Gap (5-15) MEQ/L BUN (7-17) mg/dL Creatinine (0.52-1.04) mg/dL Estimated GFR ML/MIN Glucose (74-106) mg/dL POC Glucometer 112 H (74 to 106) mg/dL Calcium (8.4-10.2) mg/dL Total Bilirubin (0.2-1.3) mg/dL AST (14-36) U/L ALT (0-35) U/L Alkaline Phosphatase (38-126) U/L Troponin I (0.000-0.034) ng/mL NT-Pro-B Natriuret Pep (0-1800) pg/mL Serum Total Protein (6.3-8.2) g/dL Albumin (3.5-5.0) g/dL Urine Color (YELLOW) Urine Appearance (CLEAR) Urine pH (5-6) Ur Specific [place] (1.005-1.025) Urine Protein (Negative) Urine Ketones (NEGATIVE) Urine Blood (0-5) Camilo/ul Urine Nitrite (NEGATIVE) Urine Bilirubin (NEGATIVE) Urine Urobilinogen (0-1) mg/dL Ur Leukocyte Esterase (NEGATIVE) Urine WBC (Auto) (0-5) /HPF Urine RBC (Auto) (0-2) /HPF U Epithel Cells (Auto) (FEW) /HPF Urine Bacteria (Auto) (NEGATIVE) /HPF Urine Mucus (Auto) (NEGATIVE) /HPF Urine Culture Reflexed (NO) Urine Glucose (NEGATIVE) mg/dL - Progress Progress: unchanged Progress Note: 03/09/21 13:15 80 years old is evaluated for sudden onset left-sided numbness and brief episode of slurred speech. Numbness is still there. She is NIH score of 1. CT head is negative for any acute findings. SOC neurology consult is obtained, neurolog ist thinks patient has subcortical stroke possibly secondary to elevated blood pressure and although CT head is negative today, recommended repeating CT without contrast tomorrow. Nonemergent MRI/MRAs. Recommended telemetry admission with stroke work-up. Patient is given full dose aspirin in here. Discussed with primary , reviewed history, work-up and SOC neurology recommendations, agreed with admission at [facility]. Will see patient in: hospital (observation) Counseled pt/family regarding: lab results, diagnosis, rad results - Departure Departure Disposition: Observation Clinical Impression: Hypertension, poor control Stroke Qualifiers: CVA mechanism: unspecified Qualified Code(s): I63.9 - Cerebral infarction, unspecified Condition: Stable Critical Care Time: Yes Critical Care Time(excluding separately billable procedures): Critical 30-74 mins Referrals: RENATA WILKINSON MD [Primary Care Provider] -
--- NOTE | 2021-03-09 13:14 | XRAY ---
Indication: Stroke. Multiple contiguous axial images obtained through the head without contrast. Comparison: None Age-appropriate global atrophy and moderate periventricular degenerative micro-ischemia bilaterally. No acute intracranial hemorrhage, abnormal extra-axial fluid collection, or mass effect. Fourth ventricle is midline without hydrocephalus. Bony calvarium intact. Visualized paranasal sinuses and mastoid air cells are clear. Impression: Nonacute senile brain. Follow-up CT or MRI brain may yield further information if there remains clinical concern.
[2021-03-09 13:52] LABS: Appearance CLEAR (CLEAR); Bilirubin NEGATIVE (NEGATIVE); Blood NEGATIVE Ery/ul (0-5); Epithelial Cells RARE /HPF (FEW); Glucose NEGATIVE (NEGATIVE); Ketones NEGATIVE (NEGATIVE); Leukocyte Esterase NEGATIVE (NEGATIVE); Mucus SLIGHT /HPF (NEGATIVE); Nitrite NEGATIVE (NEGATIVE); Protein,Urine Dip 30 (Negative); Specific Gravity 1.012 (1.005-1.025); Urobilinogen NEGATIVE mg/dL (0-1)
[2021-03-09 13:57] LABS: RBC NONE SEEN /HPF (0-2)
[2021-03-09 14:37] LABS: INFLUENZA A NEGATIVE (NEGATIVE); INFLUENZA B NEGATIVE (NEGATIVE); RESPIRATORY SYNCTIAL VIRUS NEGATIVE (Negative)
[2021-03-09] MEDS ORDERED: DUONEB 0.5-3 MG/3 ml Neb IH PRN (15:03)
--- NOTE | 2021-03-09 15:09 | XRAY ---
Indication: CVA. Hypertension. Two-dimensional sonogram and color Doppler imaging of the carotid arteries of the neck performed. Comparison: None Examination of the right carotid circulation demonstrates widely patent common carotid, carotid bulb, internal carotid, and external carotid arteries. PSV of the CCA is 76 m/s. PSV of the ICA is 55 cm/s. ICA/CCA ratio is 0.7. Normal antegrade vertebral artery flow. Examination of the left carotid circulation demonstrate widely patent common carotid artery. At the level of the bulb, there is mild soft plaquing extending into the origin of the internal carotid artery. External carotid artery are unremarkable. PSV of the CCA is 55 cm/s. PSV of the ICA is 98 cm/s. ICA/CCA ratio is 1.8. Normal antegrade vertebral artery flow. Impression: Widely patent right carotid circulation. Mild plaquing left carotid bulb and internal carotid artery. Velocity measurements and ratios are negative for hemodynamically significant flow-limiting stenosis.
[2021-03-09] MEDS: PROTONIX 40 MG IV IV SCH ×2 (16:42→18:24)
--- NOTE | 2021-03-09 17:30 | PCM.HP ---
History of Present Illness - Chief Complaint Chief Complaint: numbness on left side of body for 1 day History of Present Illness: is a 80 year old female.with history of hypertension presented in the ER with chief complaint of sudden onset numbness left half of body with some slurring of speech around 1230 last night. Reports slurring of speech lasting for only few minutes and improved but still have persistent numbness in the left face/upper extremity and left thigh area without any focal weakness. Denies any visual symptoms. Denies any chest pain palpitations or shortness of breath. No abdominal pain nausea or vomiting. No previous history of stroke. No facial asymmetry or difficulty swallowing. Patient has a blood pressure 199 systolic, reports missing her dose of antihypertensive this morning. Timing/Duration: hour(s) (11), constant, sudden Severity: moderate Character of Deficits: altered sensation Deficits: no difficulties Baseline/Normal Cognition: alert 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 Current Cognition: alert 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 Baseline Gait: walks w/o assistance Associated Symptoms: numbness/tingling in legs/feet, slurred speech - Review of Systems Constitutional: No Fever, No Chills Eyes: No Symptoms Ears, Nose, & Throat: No Symptoms Respiratory: No Cough, No Short Of Breath Cardiac: No Chest Pain, No Edema, No Syncope Abdominal/Gastrointestinal: No Abdominal Pain, No Nausea, No Vomiting, No Diarrhea Genitourinary Symptoms: No Dysuria Musculoskeletal: No Back Pain, No Neck Pain Skin: No Rash Neurological: Focal Weakness, Parasthesia (left side), Sensory Changes (left side), No Dizziness Psychological: No Symptoms Endocrine: No Symptoms Hematologic/Lymphatic: No Symptoms Immunological/Allergic: No Symptoms Medications & Allergies Home Medications: Home Medication List Esomeprazole Magnesium [Nexium] 40 mg PO DAILY 03/09/21 [History Confirmed 03/09/21] Hydralazine HCl 50 mg PO BID 03/09/21 [History Confirmed 03/09/21] Metoprolol Tartrate 100 mg PO BID 03/09/21 [History Confirmed 03/09/21] Allergies/Adverse Reactions: Allergies Allergy/AdvReac Type Severity Reaction Status Date / Time Sulfa (Sulfonamide Allergy Intermediate Verified 03/09/21 11:24 Antibiotics) cortisone Allergy Mild Verified 03/09/21 11:24 prednisone Allergy Verified 03/09/21 11:24 - Past Medical History Past Medical History: Yes Neurological History: No Pertinent History ENT History: No Pertinent History Cardiac History: Hypertension Respiratory History: COPD Endocrine Medical History: Hypothyroidism Musculoskelatal History: No Pertinent History GI Medical History: GERD History: Renal Disease Pyscho-Social History: No Pertinent History Reproductive Disorders: No Pertinent History - Female History Hx Last Menstrual Period: post Are you now?: No (N) - Past Surgical History Past Surgical History: Yes Cardiac History: No Pertinent History Respiratory Surgery: No Pertinent History GI Surgical History: No Pertinent History Genitourinary Surgical Hx: No Pertinent History Musculskeletal Surgical Hx: No Pertinent History Female Surgical History: No Pertinent History Other Surgical History: hysterectomy, thyroid, eye, tonsils - Social History Smoking Status: Former smoker Exposure to second hand smoke: No Alcohol: None Drug Use: none - Physical Exam Vital Signs: Vital Signs - 24 hr Temp Pulse Resp BP Pulse Ox 03/09/21 16:19 96 03/09/21 16:16 79 18 96 03/09/21 15:35 98.4 F 80 16 210/94 97 03/09/21 15:03 75 230/98 03/09/21 14:57 80 16 210/94 97 03/09/21 14:08 72 16 213/85 94 L 03/09/21 14:00 96 03/09/21 13:06 98.4 F 76 18 121/57 98 03/09/21 11:31 66 14 197/76 97 03/09/21 10:55 72 16 182/76 96 General Appearance: no apparent distress, alert Neurologic Exam: alert, 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, cooperative, normal mood/affect, nml cerebellar function, nml station & gait, sensory deficit (left side of body), No motor deficits, No motor weakness, No facial droop, No aphasia, No dysarthria, No abnormal gait, No abnormal cerebellar tests Eye Exam: PERRL/EOMI, eyes nml inspection Ears, Nose, Throat Exam: normal ENT inspection, TMs normal, pharynx normal, moist mucous membranes Neck Exam: normal inspection, non-tender, supple, full range of motion Respiratory Exam: normal breath sounds, lungs clear, No respiratory distress Cardiovascular Exam: regular rate/rhythm, normal heart sounds, normal peripheral pulses Gastrointestinal/Abdomen Exam: soft, normal bowel sounds, No tenderness, No mass Back Exam: normal inspection, normal range of motion, No CVA tenderness, No vertebral tenderness Extremity Exam: normal inspection, normal range of motion, pelvis stable Skin Exam: normal color, warm, dry, No rash Lymphatic Exam: No adenopathy Results - Labs Lab/Micro Results: Lab Results-Last 24 Hours 03/09/21 03/09/21 03/09/21 Range/Units 11:09 11:14 11:14 WBC 6.6 (4.0-10.5) K/mm3 RBC 3.69 L (4.1-5.4) M/mm3 Hgb 10.6 L (12.0-16.0) gm/dl Hct 33.3 L (35-47) % MCV 90.2 (78-100) fl MCH 28.7 (26-32) pg MCHC 31.8 L (32-36) g/dl RDW 14.2 H (11.5-14.0) % Plt Count 212 (150-450) K/mm3 MPV 9.9 (7.5-11.0) fl Gran % 54.1 (36.0-66.0) % Eos # (Auto) 0.23 (0-0.5) Absolute Lymphs (auto) 2.28 (1.0-4.6) Absolute Monos (auto) 0.49 (0.0-1.3) Lymphocytes % 34.4 (24.0-44.0) % Monocytes % 7.4 (0.0-12.0) % Eosinophils % 3.5 (0.00-5.0) % Basophils % 0.6 (0.0-0.4) % Absolute Granulocytes 3.58 (1.4-6.9) Basophils # 0.04 (0-0.4) PT 12.6 H (9.95-12.35) SECONDS INR 1.11 (0.8-3.0) APTT 28.5 (25.3-37.0) SECONDS Sodium (137-145) mmol/L Potassium (3.5-5.1) mmol/L Chloride (98-107) mmol/L Carbon Dioxide (22-30) mmol/L Anion Gap (5-15) MEQ/L BUN (7-17) mg/dL Creatinine (0.52-1.04) mg/dL Estimated GFR ML/MIN Glucose (74-106) mg/dL POC Glucometer 112 H (74 to 106) mg/dL Hemoglobin A1c (4.5-6.0) % Calcium (8.4-10.2) mg/dL Total Bilirubin (0.2-1.3) mg/dL AST (14-36) U/L ALT (0-35) U/L Alkaline Phosphatase (38-126) U/L Troponin I (0.000-0.034) ng/mL NT-Pro-B Natriuret Pep (0-1800) pg/mL Serum Total Protein (6.3-8.2) g/dL Albumin (3.5-5.0) g/dL TSH 3rd Generation (0.47-4.68) mIU/L Urine Color (YELLOW) Urine Appearance (CLEAR) Urine pH (5-6) Ur Specific [place] (1.005-1.025) Urine Protein (Negative) Urine Ketones (NEGATIVE) Urine Blood (0-5) Camilo/ul Urine Nitrite (NEGATIVE) Urine Bilirubin (NEGATIVE) Urine Urobilinogen (0-1) mg/dL Ur Leukocyte Esterase (NEGATIVE) Urine WBC (Auto) (0-5) /HPF Urine RBC (Auto) (0-2) /HPF U Epithel Cells (Auto) (FEW) /HPF Urine Bacteria (Auto) (NEGATIVE) /HPF Urine Mucus (Auto) (NEGATIVE) /HPF Urine Culture Reflexed (NO) Urine Glucose (NEGATIVE) mg/dL Influenza Type A Ag (NEGATIVE) Influenza Type B Ag (NEGATIVE) RSV (PCR) (Negative) SARS-CoV-2 (PCR) (NEGATIVE) 03/09/21 03/09/21 03/09/21 Range/Units 11:14 11:14 11:14 WBC (4.0-10.5) K/mm3 RBC (4.1-5.4) M/mm3 Hgb (12.0-16.0) gm/dl Hct (35-47) % MCV (78-100) fl MCH (26-32) pg MCHC (32-36) g/dl RDW (11.5-14.0) % Plt Count (150-450) K/mm3 MPV (7.5-11.0) fl Gran % (36.0-66.0) % Eos # (Auto) (0-0.5) Absolute Lymphs (auto) (1.0-4.6) Absolute Monos (auto) (0.0-1.3) Lymphocytes % (24.0-44.0) % Monocytes % (0.0-12.0) % Eosinophils % (0.00-5.0) % Basophils % (0.0-0.4) % Absolute Granulocytes (1.4-6.9) Basophils # (0-0.4) PT (9.95-12.35) SECONDS INR (0.8-3.0) APTT (25.3-37.0) SECONDS Sodium 142 (137-145) mmol/L Potassium 3.8 (3.5-5.1) mmol/L Chloride 104 (98-107) mmol/L Carbon Dioxide 26 (22-30) mmol/L Anion Gap 14.8 (5-15) MEQ/L BUN 30 H (7-17) mg/dL Creatinine 1.55 H (0.52-1.04) mg/dL Estimated GFR 34.1 ML/MIN Glucose 125 H (74-106) mg/dL POC Glucometer (74 to 106) mg/dL Hemoglobin A1c (4.5-6.0) % Calcium 9.0 (8.4-10.2) mg/dL Total Bilirubin 0.60 (0.2-1.3) mg/dL AST 22 (14-36) U/L ALT 10 (0-35) U/L Alkaline Phosphatase 60 (38-126) U/L Troponin I < 0.012 (0.000-0.034) ng/mL NT-Pro-B Natriuret Pep 720 (0-1800) pg/mL Serum Total Protein 7.7 (6.3-8.2) g/dL Albumin 4.5 (3.5-5.0) g/dL TSH 3rd Generation 3.760 (0.47-4.68) mIU/L Urine Color (YELLOW) Urine Appearance (CLEAR) Urine pH (5-6) Ur Specific [place] (1.005-1.025) Urine Protein (Negative) Urine Ketones (NEGATIVE) Urine Blood (0-5) Camilo/ul Urine Nitrite (NEGATIVE) Urine Bilirubin (NEGATIVE) Urine Urobilinogen (0-1) mg/dL Ur Leukocyte Esterase (NEGATIVE) Urine WBC (Auto) (0-5) /HPF Urine RBC (Auto) (0-2) /HPF U Epithel Cells (Auto) (FEW) /HPF Urine Bacteria (Auto) (NEGATIVE) /HPF Urine Mucus (Auto) (NEGATIVE) /HPF Urine Culture Reflexed (NO) Urine Glucose (NEGATIVE) mg/dL Influenza Type A Ag (NEGATIVE) Influenza Type B Ag (NEGATIVE) RSV (PCR) (Negative) SARS-CoV-2 (PCR) (NEGATIVE) 03/09/21 03/09/21 03/09/21 Range/Units 11:14 13:06 13:23 WBC (4.0-10.5) K/mm3 RBC (4.1-5.4) M/mm3 Hgb (12.0-16.0) gm/dl Hct (35-47) % MCV (78-100) fl MCH (26-32) pg MCHC (32-36) g/dl RDW (11.5-14.0) % Plt Count (150-450) K/mm3 MPV (7.5-11.0) fl Gran % (36.0-66.0) % Eos # (Auto) (0-0.5) Absolute Lymphs (auto) (1.0-4.6) Absolute Monos (auto) (0.0-1.3) Lymphocytes % (24.0-44.0) % Monocytes % (0.0-12.0) % Eosinophils % (0.00-5.0) % Basophils % (0.0-0.4) % Absolute Granulocytes (1.4-6.9) Basophils # (0-0.4) PT (9.95-12.35) SECONDS INR (0.8-3.0) APTT (25.3-37.0) SECONDS Sodium (137-145) mmol/L Potassium (3.5-5.1) mmol/L Chloride (98-107) mmol/L Carbon Dioxide (22-30) mmol/L Anion Gap (5-15) MEQ/L BUN (7-17) mg/dL Creatinine (0.52-1.04) mg/dL Estimated GFR ML/MIN Glucose (74-106) mg/dL POC Glucometer (74 to 106) mg/dL Hemoglobin A1c 5.98 (4.5-6.0) % Calcium (8.4-10.2) mg/dL Total Bilirubin (0.2-1.3) mg/dL AST (14-36) U/L ALT (0-35) U/L Alkaline Phosphatase (38-126) U/L Troponin I (0.000-0.034) ng/mL NT-Pro-B Natriuret Pep (0-1800) pg/mL Serum Total Protein (6.3-8.2) g/dL Albumin (3.5-5.0) g/dL TSH 3rd Generation (0.47-4.68) mIU/L Urine Color YELLOW (YELLOW) Urine Appearance CLEAR (CLEAR) Urine pH 6.0 (5-6) Ur Specific [place] 1.012 (1.005-1.025) Urine Protein 30 (Negative) Urine Ketones NEGATIVE (NEGATIVE) Urine Blood NEGATIVE (0-5) Camilo/ul Urine Nitrite NEGATIVE (NEGATIVE) Urine Bilirubin NEGATIVE (NEGATIVE) Urine Urobilinogen NEGATIVE (0-1) mg/dL Ur Leukocyte Esterase NEGATIVE (NEGATIVE) Urine WBC (Auto) NONE (0-5) /HPF Urine RBC (Auto) NONE SEEN (0-2) /HPF U Epithel Cells (Auto) RARE (FEW) /HPF Urine Bacteria (Auto) NONE (NEGATIVE) /HPF Urine Mucus (Auto) SLIGHT (NEGATIVE) /HPF Urine Culture Reflexed NO (NO) Urine Glucose NEGATIVE (NEGATIVE) mg/dL Influenza Type A Ag NEGATIVE (NEGATIVE) Influenza Type B Ag NEGATIVE (NEGATIVE) RSV (PCR) NEGATIVE (Negative) SARS-CoV-2 (PCR) NEGATIVE (NEGATIVE) 03/09/21 03/09/21 Range/Units 13:52 16:25 WBC (4.0-10.5) K/mm3 RBC (4.1-5.4) M/mm3 Hgb (12.0-16.0) gm/dl Hct (35-47) % MCV (78-100) fl MCH (26-32) pg MCHC (32-36) g/dl RDW (11.5-14.0) % Plt Count (150-450) K/mm3 MPV (7.5-11.0) fl Gran % (36.0-66.0) % Eos # (Auto) (0-0.5) Absolute Lymphs (auto) (1.0-4.6) Absolute Monos (auto) (0.0-1.3) Lymphocytes % (24.0-44.0) % Monocytes % (0.0-12.0) % Eosinophils % (0.00-5.0) % Basophils % (0.0-0.4) % Absolute Granulocytes (1.4-6.9) Basophils # (0-0.4) PT (9.95-12.35) SECONDS INR (0.8-3.0) APTT (25.3-37.0) SECONDS Sodium (137-145) mmol/L Potassium (3.5-5.1) mmol/L Chloride (98-107) mmol/L Carbon Dioxide (22-30) mmol/L Anion Gap (5-15) MEQ/L BUN (7-17) mg/dL Creatinine (0.52-1.04) mg/dL Estimated GFR ML/MIN Glucose (74-106) mg/dL POC Glucometer 111 H (74 to 106) mg/dL Hemoglobin A1c (4.5-6.0) % Calcium (8.4-10.2) mg/dL Total Bilirubin (0.2-1.3) mg/dL AST (14-36) U/L ALT (0-35) U/L Alkaline Phosphatase (38-126) U/L Troponin I < 0.012 (0.000-0.034) ng/mL NT-Pro-B Natriuret Pep (0-1800) pg/mL Serum Total Protein (6.3-8.2) g/dL Albumin (3.5-5.0) g/dL TSH 3rd Generation (0.47-4.68) mIU/L Urine Color (YELLOW) Urine Appearance (CLEAR) Urine pH (5-6) Ur Specific [place] (1.005-1.025) Urine Protein (Negative) Urine Ketones (NEGATIVE) Urine Blood (0-5) Camilo/ul Urine Nitrite (NEGATIVE) Urine Bilirubin (NEGATIVE) Urine Urobilinogen (0-1) mg/dL Ur Leukocyte Esterase (NEGATIVE) Urine WBC (Auto) (0-5) /HPF Urine RBC (Auto) (0-2) /HPF U Epithel Cells (Auto) (FEW) /HPF Urine Bacteria (Auto) (NEGATIVE) /HPF Urine Mucus (Auto) (NEGATIVE) /HPF Urine Culture Reflexed (NO) Urine Glucose (NEGATIVE) mg/dL Influenza Type A Ag (NEGATIVE) Influenza Type B Ag (NEGATIVE) RSV (PCR) (Negative) SARS-CoV-2 (PCR) (NEGATIVE) Accuchecks Date 03/09/21 Time 11:10 - Radiology Impressions Radiology Exams & Impressions: Radiology Procedures Category Date Time Status CAROTID BILATERAL [US] Stat Exams 03/09/21 15:00 Completed CHEST 1 VIEW (PORTABLE) Stat Exams 03/09/21 11:02 Completed ECHO W/2D AND DOPPLER [US] Stat Exams 03/09/21 15:00 Taken HEAD WITHOUT CONTRAST [CT] Routine Exams 03/09/21 11:01 Completed MRA BRAIN WITHOUT CONTRAST [MRI] Routine Exams 03/09/21 15:03 Ordered MRA NECK WITHOUT CONTRAST [MRI] Routine Exams 03/09/21 15:[address]/HEAD WITHOUT CONTRAST Indication: Stroke. Multiple contiguous axial images obtained through the head without contrast. Comparison: None Age-appropriate global atrophy and moderate periventricular degenerative micro-ischemia bilaterally. No acute intracranial hemorrhage, abnormal extra-axial fluid collection, or mass effect. Fourth ventricle is midline without hydrocephalus. Bony calvarium intact. Visualized paranasal sinuses and mastoid air cells are clear. Impression: Nonacute senile brain. Follow-up CT or MRI brain may yield further information if there remains clinical concern US/CAROTID BILATERAL Indication: CVA. Hypertension. Two-dimensional sonogram and color Doppler imaging of the carotid arteries of the neck performed. Comparison: None Examination of the right carotid circulation demonstrates widely patent common carotid, carotid bulb, internal carotid, and external carotid arteries. PSV of the CCA is 76 m/s. PSV of the ICA is 55 cm/s. ICA/CCA ratio is 0.7. Normal antegrade vertebral artery flow. Examination of the left carotid circulation demonstrate widely patent common carotid artery. At the level of the bulb, there is mild soft plaquing extending into the origin of the internal carotid artery. External carotid artery are unremarkable. PSV of the CCA is 55 cm/s. PSV of the ICA is 98 cm/s. ICA/CCA ratio is 1.8. Normal antegrade vertebral artery flow. Impression: Widely patent right carotid circulation. Mild plaquing left carotid bulb and internal carotid artery. Velocity measurements and ratios are negative for hemodynamically significant flow-limiting stenosis. [id number] RAD/CHEST 1 VIEW (PORTABLE) Indication: COPD. Stroke. Comparison: April 30, 2009. Portable chest demonstrates new minimal left base subsegmental atelectasis/scarring. Remaining heart and lungs normal. Bony thorax intact again with mild degenerative changes and scoliosis. - Other Procedures and Tests Respiratory Therapy 03/09/21 16:16 Respiratory Therapy Assessment DAILY Assessment/Plan (1) TIA (transient ischemic attack) Current Visit: Yes Status: Acute Assessment & Plan: Chief Complaint Diagnosis cva Allergies Allergy/AdvReac Type Severity Reaction Status Date / Time Sulfa (Sulfonamide Allergy Intermediate Verified 03/09/21 11:24 Antibiotics) cortisone Allergy Mild Verified 03/09/21 11:24 prednisone Allergy Verified 03/09/21 11:24 Vital Signs (Last 24 hours) Temp Pulse Resp BP Pulse Ox 03/09/21 16:19 96 03/09/21 16:16 79 18 96 03/09/21 15:35 98.4 F 80 16 210/94 97 03/09/21 15:03 75 230/98 03/09/21 14:57 80 16 210/94 97 03/09/21 14:08 72 16 213/85 94 L 03/09/21 14:00 96 03/09/21 13:06 98.4 F 76 18 121/57 98 03/09/21 11:31 66 14 197/76 97 03/09/21 10:55 72 16 182/76 96 Home Medications Medication Instructions Recorded Confirmed Last Taken Type Esomeprazole Magnesium [Nexium] 40 mg PO DAILY 03/09/21 03/09/21 03/09/21 16:20 History Hydralazine HCl 50 mg PO BID 03/09/21 03/09/21 03/09/21 16:30 History Metoprolol Tartrate 100 mg PO BID 03/09/21 03/09/21 03/09/21 16:30 History Current Medications Generic Name Dose Route Start Last Admin Trade Name Freq PRN Reason Stop Dose Admin Acetaminophen 650 mg 03/09/21 15:03 Tylenol 325 Mg PO 04/08/21 15:02 Q4H PRN PRN PAIN AND/OR FEVER Albuterol/Ipratropium 3 ml 03/09/21 15:03 Duoneb 0.5-3 Mg/3 Ml Neb IH 04/08/21 15:02 Q4HPRN PRN SHORTNESS OF BREATH/WHEEZING Pantoprazole Sodium 40 mg 03/09/21 16:00 03/09/21 16:42 Protonix 40 Mg Iv IV 04/08/21 15:59 40 mg Q24H10 MARCELLO Administration Albuterol Inhaler 2 each 03/09/21 19:00 IH 04/08/21 18:59 BIDRT MARCELLO Intake & Output (Last 24 hours) 03/07/21 03/08/21 03/09/21 03/10/21 11:59 11:59 11:59 11:59 Intake Total 120 Output Total 450 Balance -330 Weight 74.843 kg 74.843 kg Laboratory Results (Last 24 hours) 03/09/21 03/09/21 03/09/21 16:25 13:52 13:23 WBC RBC Hgb Hct MCV MCH MCHC RDW Plt Count MPV Gran % Eos # (Auto) Absolute Lymphs (auto) Absolute Monos (auto) Lymphocytes % Monocytes % Eosinophils % Basophils % Absolute Granulocytes Basophils # PT INR APTT Sodium Potassium Chloride Carbon Dioxide Anion Gap BUN Creatinine Estimated GFR Glucose POC Glucometer 111 H Hemoglobin A1c Calcium Total Bilirubin AST ALT Alkaline Phosphatase Troponin I < 0.012 NT-Pro-B Natriuret Pep Serum Total Protein Albumin TSH 3rd Generation Urine Color Urine Appearance Urine pH Ur Specific [place] Urine Protein Urine Ketones Urine Blood Urine Nitrite Urine Bilirubin Urine Urobilinogen Ur Leukocyte Esterase Urine WBC (Auto) Urine RBC (Auto) U Epithel Cells (Auto) Urine Bacteria (Auto) Urine Mucus (Auto) Urine Culture Reflexed Urine Glucose Influenza Type A Ag NEGATIVE Influenza Type B Ag NEGATIVE RSV (PCR) NEGATIVE SARS-CoV-2 (PCR) NEGATIVE 03/09/21 03/09/21 03/09/21 13:06 11:14 11:14 WBC RBC Hgb Hct MCV MCH MCHC RDW Plt Count MPV Gran % Eos # (Auto) Absolute Lymphs (auto) Absolute Monos (auto) Lymphocytes % Monocytes % Eosinophils % Basophils % Absolute Granulocytes Basophils # PT INR APTT Sodium Potassium Chloride Carbon Dioxide Anion Gap BUN Creatinine Estimated GFR Glucose POC Glucometer Hemoglobin A1c 5.98 Calcium Total Bilirubin AST ALT Alkaline Phosphatase Troponin I NT-Pro-B Natriuret Pep Serum Total Protein Albumin TSH 3rd Generation 3.760 Urine Color YELLOW Urine Appearance CLEAR Urine pH 6.0 Ur Specific [place] 1.012 Urine Protein 30 Urine Ketones NEGATIVE Urine Blood NEGATIVE Urine Nitrite NEGATIVE Urine Bilirubin NEGATIVE Urine Urobilinogen NEGATIVE Ur Leukocyte Esterase NEGATIVE Urine WBC (Auto) NONE Urine RBC (Auto) NONE SEEN U Epithel Cells (Auto) RARE Urine Bacteria (Auto) NONE Urine Mucus (Auto) SLIGHT Urine Culture Reflexed NO Urine Glucose NEGATIVE Influenza Type A Ag Influenza Type B Ag RSV (PCR) SARS-CoV-2 (PCR) 03/09/21 03/09/21 03/09/21 11:14 11:14 11:14 WBC RBC Hgb Hct MCV MCH MCHC RDW Plt Count MPV Gran % Eos # (Auto) Absolute Lymphs (auto) Absolute Monos (auto) Lymphocytes % Monocytes % Eosinophils % Basophils % Absolute Granulocytes Basophils # PT 12.6 H INR 1.11 APTT 28.5 Sodium 142 Potassium 3.8 Chloride 104 Carbon Dioxide 26 Anion Gap 14.8 BUN 30 H Creatinine 1.55 H Estimated GFR 34.1 Glucose 125 H POC Glucometer Hemoglobin A1c Calcium 9.0 Total Bilirubin 0.60 AST 22 ALT 10 Alkaline Phosphatase 60 Troponin I < 0.012 NT-Pro-B Natriuret Pep 720 Serum Total Protein 7.7 Albumin 4.5 TSH 3rd Generation Urine Color Urine Appearance Urine pH Ur Specific [place] Urine Protein Urine Ketones Urine Blood Urine Nitrite Urine Bilirubin Urine Urobilinogen Ur Leukocyte Esterase Urine WBC (Auto) Urine RBC (Auto) U Epithel Cells (Auto) Urine Bacteria (Auto) Urine Mucus (Auto) Urine Culture Reflexed Urine Glucose Influenza Type A Ag Influenza Type B Ag RSV (PCR) SARS-CoV-2 (PCR) 03/09/21 03/09/21 11:14 11:09 WBC 6.6 RBC 3.69 L Hgb 10.6 L Hct 33.3 L MCV 90.2 MCH 28.7 MCHC 31.8 L RDW 14.2 H Plt Count 212 MPV 9.9 Gran % 54.1 Eos # (Auto) 0.23 Absolute Lymphs (auto) 2.28 Absolute Monos (auto) 0.49 Lymphocytes % 34.4 Monocytes % 7.4 Eosinophils % 3.5 Basophils % 0.6 Absolute Granulocytes 3.58 Basophils # 0.04 PT INR APTT Sodium Potassium Chloride Carbon Dioxide Anion Gap BUN Creatinine Estimated GFR Glucose POC Glucometer 112 H Hemoglobin A1c Calcium Total Bilirubin AST ALT Alkaline Phosphatase Troponin I NT-Pro-B Natriuret Pep Serum Total Protein Albumin TSH 3rd Generation Urine Color Urine Appearance Urine pH Ur Specific [place] Urine Protein Urine Ketones Urine Blood Urine Nitrite Urine Bilirubin Urine Urobilinogen Ur Leukocyte Esterase Urine WBC (Auto) Urine RBC (Auto) U Epithel Cells (Auto) Urine Bacteria (Auto) Urine Mucus (Auto) Urine Culture Reflexed Urine Glucose Influenza Type A Ag Influenza Type B Ag RSV (PCR) SARS-CoV-2 (PCR) Orders (Last 24 hours) Category Date Time Status Bedrest ROUTINE Activity 03/09/21 15:03 Active Up With Assistance ROUTINE Activity 03/09/21 15:03 Active [employer] STAT Care 03/09/21 11:03 Completed Code Status Order ROUTINE Care 03/09/21 15:03 Active EKG-ER Only STAT Care 03/09/21 11:02 Completed Fall Protocol ROUTINE Care 03/09/21 15:03 Active IV Care Q6H Care 03/09/21 15:03 Active IV Insertion STAT Care 03/09/21 11:02 Completed NPO (ED) STAT Care 03/09/21 11:02 Completed Neuro Checks Q2H Care 03/09/21 15:03 Active POCT Glucose Check STAT Care 03/09/21 11:[address] in Observation ROUTINE Care 03/09/21 15:03 Active Mansoor Vela, Apply ROUTINE Care 03/09/21 15:03 Active Telemetry CONTINUOUS Care 03/09/21 15:03 Active Weight,Daily 0600 Care 03/09/21 15:03 Active Low Sodium (1.5-2gram Sodium) Diet 03/09/21 Dinner Active CAROTID BILATERAL [US] Stat Exams 03/09/21 15:00 Completed CHEST 1 VIEW (PORTABLE) Stat Exams 03/09/21 11:02 Completed ECHO W/2D AND DOPPLER [US] Stat Exams 03/09/21 15:00 Taken HEAD WITHOUT CONTRAST [CT] Routine Exams 03/09/21 11:01 Completed MRA BRAIN WITHOUT CONTRAST [MRI] Routine Exams 03/09/21 15:03 Ordered MRA NECK WITHOUT CONTRAST [MRI] Routine Exams 03/09/21 15:03 Ordered CBC W DIFF AM.LAB Lab 03/10/21 04:00 Ordered CBC W DIFF Stat Lab 03/09/21 11:14 Completed CMP AM.LAB Lab 03/10/21 04:00 Ordered CMP Stat Lab 03/09/21 11:14 Completed HEMOGLOBIN A1C Stat Lab 03/09/21 11:14 Completed LIPID PROFILE Stat Lab 03/10/21 06:01 Ordered NT PRO BNP Stat Lab 03/09/21 11:14 Completed POCT GLUCOSE Stat Lab 03/09/21 11:09 Completed POCT GLUCOSE Stat Lab 03/09/21 16:25 Completed PROTIME WITH INR Stat Lab 03/09/21 11:14 Completed PTT Stat Lab 03/09/21 11:14 Completed TROPONIN Q3H Lab 03/09/21 11:14 Completed TROPONIN Q3H Lab 03/09/21 13:52 Completed TROPONIN Q3H Lab 03/09/21 17:15 Ordered TROPONIN Q3H Lab 03/09/21 20:15 Ordered TROPONIN Q3H Lab 03/09/21 23:15 Ordered TSH [TSH, 3RD Generation] Stat Lab 03/09/21 11:14 Completed UA W/RFX UR CULTURE Stat Lab 03/09/21 13:06 Completed Acetaminophen 325 mg [Tylenol 325 mg] Med 03/09/21 15:03 Active 650 mg PO Q4H PRN PRN Albuterol/Ipratropium 3ml Neb* [DUONEB 0.5-3 MG/3 ml Med 03/09/21 15:03 Active Neb] 3 ml IH Q4HPRN PRN Pantoprazole 40 mg [Protonix 40 mg IV] Med 03/09/21 16:00 Active 40 mg IV Q24H10 Patient Own Med [Patient Own Medication] Med 03/09/21 19:00 Active 2 each IH BIDRT OT Eval and Treat (MD Order) ROUTINE OT 03/09/21 15:03 Active Pulse Oximetry .spot check RT 03/09/21 16:17 Active Respiratory Therapy Assessment DAILY RT 03/09/21 16:16 Active Transfer Order Routine Transfer 03/09/21 Completed Patient Care Notes (Last 24 hours) 03/09/21 16:56 Nursing Note by [facility] continue to wait on home medication list from [facility] and even attempted to call [facility] in [facility] @ --3 times and no answer. pt took her own metoprolol, hydralazine and nexium.--pill identifier used to verify medications. Initialized on 03/09/21 16:56 - END OF NOTE 03/09/21 16:00 (created 03/09/21 17:00) Nursing Note by [facility] pt's daughter, Marysol given fax number to [facility] nursing station for home medication list to be faxed to us. Initialized on 03/09/21 17:00 - END OF NOTE 03/09/21 15:50 (created 03/09/21 16:59) Nursing Note by Kalli Heart dr. updated. Initialized on 03/09/21 16:59 - END OF NOTE 03/09/21 15:45 Nursing Note by [facility] pt's daughter Marysol called again to say she had talked with the pt's physician in [place] and was advised to keep the pt here. she would now like to keep pt here at [facility] Initialized on 03/09/21 15:45 - END OF NOTE 03/09/21 15:32 Nursing Note by Kalli Heart pt AAOx3, BARRY, c/o slight numbness in left arm that is 'much better" than when she came in. Initialized on 03/09/21 15:32 - END OF NOTE 03/09/21 15:26 Nursing Note by Kalli Heart pt brought to the floor from the ER. pt's daughter Marysol on phone and adamant on picking her mother up and taking her to [facility] in [facility]. spoke with dr. medina about situation and he said he will discharge pt as long as pt's family is planning to take her to the Emergency Room. Initialized on 03/09/21 15:26 - END OF NOTE Now Daughter wants to keep her here and wants to continue all care Code(s): G45.9 - TRANSIENT CEREBRAL ISCHEMIC ATTACK, UNSPECIFIED (2) Hypertension, poor control Current Visit: Yes Status: Acute Assessment & Plan: Last Vital Signs Temp 98.4 F 03/09/21 15:35 Pulse 79 03/09/21 16:16 Resp 18 03/09/21 16:16 BP 210/94 03/09/21 15:35 Pulse Ox 96 03/09/21 16:19 Allergies Sulfa (Sulfonamide Antibiotics) Allergy (Intermediate, Verified 03/09/21 11:24) cortisone Allergy (Mild, Verified 03/09/21 11:24) prednisone Allergy (Verified 03/09/21 11:24) Active Medications Acetaminophen (Tylenol 325 Mg) 650 mg PO Q4H PRN PRN PRN Reason: PAIN AND/OR FEVER Stop: 04/08/21 15:02 Albuterol/Ipratropium (Duoneb 0.5-3 Mg/3 Ml Neb) 3 ml IH Q4HPRN PRN PRN Reason: SHORTNESS OF BREATH/WHEEZING Stop: 04/08/21 15:02 Pantoprazole Sodium (Protonix 40 Mg Iv) 40 mg IV Q24H10 MARCELLO Stop: 04/08/21 15:59 Last Admin: 03/09/21 16:42 Dose: 40 mg Documented by: Albuterol Inhaler 2 each IH BIDRT MARCELLO Stop: 04/08/21 18:59 Intake & Output 03/09/21 03/10/21 11:59 11:59 Intake Total 120 Output Total 450 Balance -330 Weight 74.843 kg 74.843 kg Orders 03/09/21 16:16 Respiratory Therapy Assessment DAILY 03/09/21 16:17 Pulse Oximetry .spot check 03/09/21 19:00 Patient Own Med [Patient Own Medication] 2 each IH BIDRT Lab Tests 03/09/21 03/09/21 03/09/21 11:09 11:14 11:14 WBC 6.6 RBC 3.69 L Hgb 10.6 L Hct 33.3 L MCV 90.2 MCH 28.7 MCHC 31.8 L RDW 14.2 H Plt Count 212 MPV 9.9 Gran % 54.1 Eos # (Auto) 0.23 Absolute Lymphs (auto) 2.28 Absolute Monos (auto) 0.49 Lymphocytes % 34.4 Monocytes % 7.4 Eosinophils % 3.5 Basophils % 0.6 Absolute Granulocytes 3.58 Basophils # 0.04 PT 12.6 H INR 1.11 APTT 28.5 Sodium Potassium Chloride Carbon Dioxide Anion Gap BUN Creatinine Estimated GFR Glucose POC Glucometer 112 H Hemoglobin A1c Calcium Total Bilirubin AST ALT Alkaline Phosphatase Troponin I NT-Pro-B Natriuret Pep Serum Total Protein Albumin TSH 3rd Generation Urine Color Urine Appearance Urine pH Ur Specific [place] Urine Protein Urine Ketones Urine Blood Urine Nitrite Urine Bilirubin Urine Urobilinogen Ur Leukocyte Esterase Urine WBC (Auto) Urine RBC (Auto) U Epithel Cells (Auto) Urine Bacteria (Auto) Urine Mucus (Auto) Urine Culture Reflexed Urine Glucose Influenza Type A Ag Influenza Type B Ag RSV (PCR) SARS-CoV-2 (PCR) 03/09/21 03/09/21 03/09/21 11:14 11:14 11:14 WBC RBC Hgb Hct MCV MCH MCHC RDW Plt Count MPV Gran % Eos # (Auto) Absolute Lymphs (auto) Absolute Monos (auto) Lymphocytes % Monocytes % Eosinophils % Basophils % Absolute Granulocytes Basophils # PT INR APTT Sodium 142 Potassium 3.8 Chloride 104 Carbon Dioxide 26 Anion Gap 14.8 BUN 30 H Creatinine 1.55 H Estimated GFR 34.1 Glucose 125 H POC Glucometer Hemoglobin A1c Calcium 9.0 Total Bilirubin 0.60 AST 22 ALT 10 Alkaline Phosphatase 60 Troponin I < 0.012 NT-Pro-B Natriuret Pep 720 Serum Total Protein 7.7 Albumin 4.5 TSH 3rd Generation 3.760 Urine Color Urine Appearance Urine pH Ur Specific [place] Urine Protein Urine Ketones Urine Blood Urine Nitrite Urine Bilirubin Urine Urobilinogen Ur Leukocyte Esterase Urine WBC (Auto) Urine RBC (Auto) U Epithel Cells (Auto) Urine Bacteria (Auto) Urine Mucus (Auto) Urine Culture Reflexed Urine Glucose Influenza Type A Ag Influenza Type B Ag RSV (PCR) SARS-CoV-2 (PCR) 03/09/21 03/09/21 03/09/21 11:14 13:06 13:23 WBC RBC Hgb Hct MCV MCH MCHC RDW Plt Count MPV Gran % Eos # (Auto) Absolute Lymphs (auto) Absolute Monos (auto) Lymphocytes % Monocytes % Eosinophils % Basophils % Absolute Granulocytes Basophils # PT INR APTT Sodium Potassium Chloride Carbon Dioxide Anion Gap BUN Creatinine Estimated GFR Glucose POC Glucometer Hemoglobin A1c 5.98 Calcium Total Bilirubin AST ALT Alkaline Phosphatase Troponin I NT-Pro-B Natriuret Pep Serum Total Protein Albumin TSH 3rd Generation Urine Color YELLOW Urine Appearance CLEAR Urine pH 6.0 Ur Specific [place] 1.012 Urine Protein 30 Urine Ketones NEGATIVE Urine Blood NEGATIVE Urine Nitrite NEGATIVE Urine Bilirubin NEGATIVE Urine Urobilinogen NEGATIVE Ur Leukocyte Esterase NEGATIVE Urine WBC (Auto) NONE Urine RBC (Auto) NONE SEEN U Epithel Cells (Auto) RARE Urine Bacteria (Auto) NONE Urine Mucus (Auto) SLIGHT Urine Culture Reflexed NO Urine Glucose NEGATIVE Influenza Type A Ag NEGATIVE Influenza Type B Ag NEGATIVE RSV (PCR) NEGATIVE SARS-CoV-2 (PCR) NEGATIVE 03/09/21 03/09/21 13:52 16:25 WBC RBC Hgb Hct MCV MCH MCHC RDW Plt Count MPV Gran % Eos # (Auto) Absolute Lymphs (auto) Absolute Monos (auto) Lymphocytes % Monocytes % Eosinophils % Basophils % Absolute Granulocytes Basophils # PT INR APTT Sodium Potassium Chloride Carbon Dioxide Anion Gap BUN Creatinine Estimated GFR Glucose POC Glucometer 111 H Hemoglobin A1c Calcium Total Bilirubin AST ALT Alkaline Phosphatase Troponin I < 0.012 NT-Pro-B Natriuret Pep Serum Total Protein Albumin TSH 3rd Generation Urine Color Urine Appearance Urine pH Ur Specific [place] Urine Protein Urine Ketones Urine Blood Urine Nitrite Urine Bilirubin Urine Urobilinogen Ur Leukocyte Esterase Urine WBC (Auto) Urine RBC (Auto) U Epithel Cells (Auto) Urine Bacteria (Auto) Urine Mucus (Auto) Urine Culture Reflexed Urine Glucose Influenza Type A Ag Influenza Type B Ag RSV (PCR) SARS-CoV-2 (PCR) Code(s): I10 - ESSENTIAL (PRIMARY) HYPERTENSION
[2021-03-09] MEDS ORDERED: Ecotrin 325 MG PO ONE (18:03)
[2021-03-09] MEDS: PATIENT OWN MEDICATION IH SCH (19:40)
[2021-03-10 07:06] LABS: Absolute Neutrophil Ct (ANC) 4.39 (1.4-6.9); BASOPHIL % 0.4 % (0.0-0.4); Basophil (Absolute #) 0.03 (0-0.4); Eosinophil % 2.9 % (0.00-5.0); Eosinophil (Absolute #) 0.23 (0-0.5); Hematocrit 32.2 % (35-47); Hemoglobin 10.2 gm/dl (12.0-16.0); Lymphocyte (Absolute #) 2.89 (1.0-4.6); Lymphocytes % 36.2 % (24.0-44.0); Mean Cell Volume 90.4 fl (78-100); Mean Corpuscular Hemoglobin 28.7 pg (26-32); Mean Corpuscular Hgb Concent. 31.7 g/dl (32-36); Mean Platelet Volume 10.2 fl (7.5-11.0); Monocyte (Absolute #) 0.45 (0.0-1.3); Monocytes % 5.6 % (0.0-12.0); Neutrophil % 54.9 % (36.0-66.0); Platelet Count 233 K/mm3 (150-450); Red Blood Count 3.56 M/mm3 (4.1-5.4); Red Cell Distribution Width 14.3 % (11.5-14.0)
[2021-03-10 07:27] LABS: ALBUMIN 4.4 g/dL (3.5-5.0); ANION GAP 14.1 MEQ/L (5-15); BILIRUBIN,TOTAL 0.4 mg/dL (0.2-1.3); Calcium 8.9 mg/dL (8.4-10.2); Creatinine 1 1.5 mg/dL (0.52-1.04); EST GLOMERULAR FILTRATION RATE 35.4 ML/MIN; Potassium 3.2 mmol/L (3.5-5.1); Total Protein 7.2 g/dL (6.3-8.2)
[2021-03-10] MEDS: PATIENT OWN MEDICATION IH SCH ×2 (08:07→19:49)
[2021-03-10 08:15] LABS: Risk Ratio 5.1
[2021-03-10] MEDS ORDERED: NON-FORMULARY ITEM (Esomeprazole Magnesium [Nexium] 20 MG) PO SCH (10:00)
[2021-03-10] MEDS ORDERED: NON-FORMULARY ITEM (Hydralazine Hcl [Hydralazine Hcl] 50 MG) PO SCH (10:00)
[2021-03-10] MEDS ORDERED: NON-FORMULARY ITEM (Metoprolol Tartrate [Metoprolol Tartrate] 100 MG) PO SCH (10:00)
[2021-03-10] MEDS ORDERED: NORVASC 5 MG PO SCH (10:00)
[2021-03-10] MEDS: Apresoline 25 MG TABLET PO SCH ×2 (11:08→22:26)
[2021-03-10] MEDS: Lopressor 50 MG PO SCH ×2 (11:08→22:27)
[2021-03-10] MEDS: ECOTRIN 81 MG PO SCH (11:09)
[2021-03-10] MEDS: Protonix 20MG Tablet PO SCH (11:09)
[2021-03-10] MEDS: ZYLOPRIM 300 MG PO SCH (11:09)
[2021-03-10] MEDS: PLAVIX 75 MG Tablet PO SCH (11:09)
[2021-03-11] MEDS: PATIENT OWN MEDICATION IH SCH ×2 (07:41→17:06)
[2021-03-11] MEDS ORDERED: Apresoline 25 MG TABLET PO PRN (09:59)
[2021-03-11] MEDS: TYLENOL 325 MG PO PRN (11:31)
[2021-03-11] MEDS: PLAVIX 75 MG Tablet PO SCH (11:32)
[2021-03-11] MEDS: ZYLOPRIM 300 MG PO SCH (11:32)
[2021-03-11] MEDS: Lopressor 50 MG PO SCH ×2 (11:32→21:19)
[2021-03-11] MEDS: ECOTRIN 81 MG PO SCH (11:33)
[2021-03-11] MEDS: Protonix 20MG Tablet PO SCH (11:33)
[2021-03-12] MEDS: TYLENOL 325 MG PO PRN (04:23)
[2021-03-12 05:52] LABS: Calcium 8.7 mg/dL (8.4-10.2); Creatinine 1 1.52 mg/dL (0.52-1.04); EST GLOMERULAR FILTRATION RATE 34.9 ML/MIN; Potassium 3.5 mmol/L (3.5-5.1)
[2021-03-12] MEDS: PATIENT OWN MEDICATION IH SCH (05:57)
--- NOTE | 2021-03-12 07:52 | PCM.NOTE ---
Date and Time: 03/12/21 0750 Subjective Assessment: doing better - Review of Systems Constitutional: No Fever, No Chills Eyes: No Symptoms Ears, Nose, & Throat: No Symptoms Respiratory: No Cough, No Short Of Breath Cardiac: No Chest Pain, No Edema, No Syncope Abdominal/Gastrointestinal: No Abdominal Pain, No Nausea, No Vomiting, No Diarrhea Genitourinary Symptoms: No Dysuria Musculoskeletal: No Back Pain, No Neck Pain Skin: No Rash Neurological: No Dizziness, No Focal Weakness, No Sensory Changes Psychological: No Symptoms Endocrine: No Symptoms Hematologic/Lymphatic: No Symptoms Immunological/Allergic: No Symptoms Objective Exam General Appearance: no apparent distress, alert Neurologic Exam: alert, 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, cooperative, normal mood/affect, nml cerebellar function, sensation nml, No motor deficits Skin Exam: normal color, warm, dry Eye Exam: PERRL, EOMI, eyes nml inspection Ears, Nose, Throat Exam: normal ENT inspection, pharynx normal, moist mucous membranes Neck Exam: normal inspection, non-tender, supple, full range of motion Respiratory Exam: normal breath sounds, lungs clear, No respiratory distress Cardiovascular Exam: regular rate/rhythm, normal heart sounds Gastrointestinal/Abdomen Exam: soft, No tenderness, No mass Extremity Exam: normal inspection, normal range of motion Back Exam: normal inspection, normal range of motion, No CVA tenderness, No vertebral tenderness Pelvic Exam: deferred Rectal Exam: deferred OBJECTIVE DATA Vital Signs: Vital Signs - 24 hr Temp Pulse Resp BP Pulse Ox 03/12/21 07:43 97.5 F 67 16 170/75 95 03/12/21 05:57 68 16 94 L 03/12/21 04:00 97.3 F 66 18 195/83 96 03/12/21 00:00 98.0 F 68 20 193/77 95 03/11/21 20:00 97.7 F 75 22 192/87 96 03/11/21 17:12 67 18 93 L 03/11/21 16:00 98.7 F 68 16 167/70 95 03/11/21 12:00 97.8 F 93 H 16 193/99 96 03/11/21 08:00 97.9 F 89 16 218/83 98 03/11/21 07:56 71 20 95 Pain Assessment - Last Documented Pain Intensity 6 Pain Scale Used 0-10 Pain Scale Intake and Output: Intake & Output 03/09/21 03/10/21 03/11/21 03/12/21 11:59 11:59 11:59 11:59 Intake Total 640 720 760 Output Total 2653 332 7902 Balance -410 30 -8424 Weight 74.843 kg 74.843 kg 75.9 kg 77 kg Lab Results: Lab Results-Last 24 Hours 03/12/21 Range/Units 04:37 Sodium 138 (137-145) mmol/L Potassium 3.5 (3.5-5.1) mmol/L Chloride 103 (98-107) mmol/L Carbon Dioxide 28 (22-30) mmol/L Anion Gap 11.0 (5-15) MEQ/L BUN 34 H (7-17) mg/dL Creatinine 1.52 H (0.52-1.04) mg/dL Estimated GFR 34.9 ML/MIN Glucose 119 H (74-106) mg/dL Calcium 8.7 (8.4-10.2) mg/dL Radiology Exams: Radiology Procedures Category Date Time Status MRA BRAIN WITHOUT CONTRAST [MRI] Routine Exams 03/12/21 Ordered MRA NECK WITHOUT CONTRAST [MRI] Routine Exams 03/12/21 Ordered Assessment/Plan (1) TIA (transient ischemic attack) Current Visit: Yes Status: Resolved Assessment & Plan: Chief Complaint Diagnosis numbness on left side of body for 1 day Allergies Allergy/AdvReac Type Severity Reaction Status Date / Time Sulfa (Sulfonamide Allergy Intermediate Verified 03/09/21 11:24 Antibiotics) cortisone Allergy Mild Verified 03/09/21 11:24 prednisone Allergy Verified 03/09/21 11:24 Vital Signs (Last 24 hours) Temp Pulse Resp BP Pulse Ox 03/12/21 07:43 97.5 F 67 16 170/75 95 03/12/21 05:57 68 16 94 L 03/12/21 04:00 97.3 F 66 18 195/83 96 03/12/21 00:00 98.0 F 68 20 193/77 95 03/11/21 20:00 97.7 F 75 22 192/87 96 03/11/21 17:12 67 18 93 L 03/11/21 16:00 98.7 F 68 16 167/70 95 03/11/21 12:00 97.8 F 93 H 16 193/99 96 03/11/21 08:00 97.9 F 89 16 218/83 98 03/11/21 07:56 71 20 95 Home Medications Medication Instructions Recorded Confirmed Last Taken Type Allopurinol 300 mg [Zyloprim 300 mg PO DAILY 03/09/21 03/09/21 03/09/21 History 300 mg] Amlodipine Besylate 5 mg 5 mg PO DAILY 03/09/21 03/09/21 03/09/21 History [Norvasc 5 mg] Doxepin HCl 75 mg PO HS 03/09/21 03/09/21 03/08/21 History Esomeprazole Magnesium [Nexium] 20 mg PO DAILY 03/09/21 03/09/21 03/09/21 History Hydralazine HCl 50 mg PO BID 03/09/21 03/09/21 03/09/21 16:30 History Metoprolol Tartrate 100 mg PO BID 03/09/21 03/09/21 03/09/21 16:30 History Current Medications Generic Name Dose Route Start Last Admin Trade Name Fre PRN Reason Stop Dose Admin Acetaminophen 650 mg 03/09/21 15:03 03/12/21 04:23 Tylenol 325 Mg PO 04/08/21 15:02 650 mg Q4H PRN PRN Administration PAIN AND/OR FEVER Albuterol/Ipratropium 3 ml 03/09/21 15:03 Duoneb 0.5-3 Mg/3 Ml Neb IH 04/08/21 15:02 Q4HPRN PRN SHORTNESS OF BREATH/WHEEZING Allopurinol 300 mg 03/10/21 10:00 03/11/21 11:32 Zyloprim 300 Mg PO 04/09/21 09:59 300 mg DAILY MARCELLO Administration Amlodipine Besylate 5 mg 03/10/21 10:00 03/10/21 11:08 Norvasc 5 Mg PO 04/09/21 09:59 Not Given DAILY MARCELLO Aspirin 81 mg 03/10/21 10:27 03/11/21 11:33 Ecotrin 81 Mg PO 04/09/21 10:26 81 mg DAILY MARCELLO Administration Clopidogrel Bisulfate 75 mg 03/10/21 10:27 03/11/21 11:32 Plavix 75 Mg Tablet PO 04/09/21 10:26 75 mg DAILY MARCELLO Administration Hydralazine HCl 50 mg 03/11/21 09:59 03/12/21 04:20 Apresoline 25 Mg Tablet PO 04/10/21 09:57 50 mg Q6HPRN PRN Administration HYPERTENSION Metoprolol Tartrate 100 mg 03/10/21 10:00 03/11/21 21:19 Lopressor 50 Mg PO 04/09/21 09:59 100 mg BID MARCELLO Administration Pantoprazole Sodium 20 mg 03/10/21 10:00 03/11/21 11:33 Protonix 20mg Tablet PO 04/09/21 09:59 20 mg DAILY MARCELLO Administration Albuterol Inhaler 2 each 03/09/21 19:00 03/12/21 05:57 IH 04/08/21 18:59 2 each BIDRT MARCELLO Administration Discontinued Medications Generic Name Dose Route Start Last Admin Trade Name Freq PRN Reason Stop Dose Admin Aspirin 325 mg 03/09/21 18:03 03/09/21 18:04 Ecotrin 325 Mg PO 03/09/21 18:04 325 mg NOW ONE Administration Hydralazine HCl 50 mg 03/10/21 10:00 03/10/21 22:26 Apresoline 25 Mg Tablet PO 04/09/21 09:59 Not Given BID MARCELLO Pantoprazole Sodium 40 mg 03/09/21 16:00 03/09/21 18:24 Protonix 40 Mg Iv IV 04/08/21 15:59 Not Given Q24H10 MARCELLO Intake & Output (Last 24 hours) 03/09/21 03/10/21 03/11/21 03/12/21 11:59 11:59 11:59 11:59 Intake Total 640 720 760 Output Total 5866 665 0509 Balance -410 30 -1340 Weight 74.843 kg 74.843 kg 75.9 kg 77 kg Laboratory Results (Last 24 hours) 03/12/21 04:37 Sodium 138 Potassium 3.5 Chloride 103 Carbon Dioxide 28 Anion Gap 11.0 BUN 34 H Creatinine 1.52 H Estimated GFR 34.9 Glucose 119 H Calcium 8.7 Orders (Last 24 hours) Category Date Time Status MRA BRAIN WITHOUT CONTRAST [MRI] Routine Exams 03/12/21 Ordered MRA NECK WITHOUT CONTRAST [MRI] Routine Exams 03/12/21 Ordered BMP AM.LAB Lab 03/12/21 04:37 Completed HydrALAzine HCL 25 MG TAB [Apresoline 25 MG TABLET Med 03/11/21 09:59 Active *] 50 mg PO Q6HPRN PRN Patient Care Notes (Last 24 hours) 03/12/21 05:46 Nursing Note by Melchor Brown THIS NURSE GAVE PT HYDRALAZINE 50MG PO FOR BP OF 195/83. THIS NURSE RECHECKED BP 1 HR LATER, BP WAS 163/69. Initialized on 03/12/21 05:46 - END OF NOTE Code(s): G45.9 - TRANSIENT CEREBRAL ISCHEMIC ATTACK, UNSPECIFIED (2) Hypertension, poor control Current Visit: Yes Status: Acute Code(s): I10 - ESSENTIAL (PRIMARY) HYPERTENSION
[2021-03-12] MEDS: Lopressor 50 MG PO SCH (10:27)
[2021-03-12] MEDS: Protonix 20MG Tablet PO SCH (10:27)
[2021-03-12] MEDS: ZYLOPRIM 300 MG PO SCH (10:27)
[2021-03-12] MEDS: ECOTRIN 81 MG PO SCH (10:27)
[2021-03-12] MEDS: PLAVIX 75 MG Tablet PO SCH (10:27)
[2021-03-12] MEDS ORDERED: Apresoline 25 MG TABLET PO SCH (11:59)
--- NOTE | 2021-03-12 16:37 | XRAY ---
Indication: Stroke. Multi-slab 3-D [id number] MRA carotid arteries of the neck performed without contrast. 3-dimensional sagittal and coronal reformatted images obtained. Comparison: None Left common carotid artery is normal in course and caliber without critical stenosis/obstruction. At the level of bulb, there is mild eccentric plaquing stenosis. This further extends into the origin/proximal internal carotid artery producing 70-80% stenosis. Remaining external carotid artery are normal in MRA appearance. Right common carotid, carotid bulb, internal carotid, national carotid arteries are normal in MRA appearance. Right vertebral artery is markedly attenuated and tapers off by C3 level. Left vertebral artery is normal in MRA appearance. Impression: 1. Left carotid bulb and left internal carotid artery eccentric plaquing producing 70-80% stenosis. 2. Attenuated right vertebral artery, tapering off by C3 level. 3. Remaining MRA right carotid circulation and left vertebral artery normal in MRA appearance.
--- NOTE | 2021-03-12 16:45 | XRAY ---
Indication: Stroke. Multi-slab 3-D [id number] MRA [place] of [place] performed without contrast. 3-dimensional sagittal and coronal reformatted images obtained. Comparison: None Distal internal carotid arteries are bilaterally symmetric without critical stenosis, obstruction, or AV malformation. Normal carotid terminus with normal branching A1 and M1 segments bilaterally. More distal anterior cerebral and middle cerebral arteries are normal and MRA appearance. Anatomic variant for origin of the right posterior cerebral artery. Distal right vertebral artery is markedly attenuated and small presumed secondary to more proximal vertebral artery stenosis/obstruction. Distal left vertebral artery and basilar artery normal in MRA appearance. Normal branching left posterior cerebral, left/right superior cerebellar, and left/right anterior inferior cerebellar arteries. Impression: 1. Attenuated and small distal right vertebral artery presumed secondary to proximal vertebral artery stenosis/obstruction. 2. Anatomic variant origin right posterior cerebral artery. 3. Remaining MRA [place] of [place] is negative.
[2021-03-12 17:11] VITALS: BP 193/81; PULSE 69; O2SAT 97
[2021-03-12] MEDS ORDERED: NORVASC 5 MG PO SCH (22:00)
--- NOTE | 2021-03-13 20:45 | PCM.DS ---
Discharge Summary Date of Admission: 03/09/21 15:00 Admitting Physician: RENATA WILKINSON Primary Care Provider: RENATA WILKINSON Allergies Allergies Sulfa (Sulfonamide Antibiotics) Allergy (Intermediate, Verified 03/09/21 11:24) cortisone Allergy (Mild, Verified 03/09/21 11:24) prednisone Allergy (Verified 03/09/21 11:24) Hospital Summary - Hospital Course Hospital Course: Chief Complaint Diagnosis numbness on left side of body for 1 day Allergies Allergy/AdvReac Type Severity Reaction Status Date / Time Sulfa (Sulfonamide Allergy Intermediate Verified 03/09/21 11:24 Antibiotics) cortisone Allergy Mild Verified 03/09/21 11:24 prednisone Allergy Verified 03/09/21 11:24 Home Medications Medication Instructions Recorded Confirmed Last Taken Type Allopurinol 300 mg [Zyloprim 300 mg PO DAILY 03/09/21 03/09/21 03/09/21 History 300 mg] Amlodipine Besylate 5 mg 5 mg PO HS 03/09/21 03/12/21 03/09/21 History [Norvasc 5 mg] Doxepin HCl 75 mg PO HS 03/09/21 03/09/21 03/08/21 History Esomeprazole Magnesium [Nexium] 20 mg PO DAILY 03/09/21 03/09/21 03/09/21 History Hydralazine HCl 50 mg PO BID 03/09/21 03/09/21 03/09/21 16:30 History Metoprolol Tartrate 100 mg PO BID 03/09/21 03/09/21 03/09/21 16:30 History Aspirin EC 81 mg [Ecotrin 81 81 mg PO DAILY #30 tablet.ec 03/12/21 Unknown Rx mg] Clopidogrel Bisulfate 75 mg 75 mg PO DAILY #30 tablet 03/12/21 Unknown Rx [PLAVIX 75 MG Tablet] Current Medications Discontinued Medications Generic Name Dose Route Start Last Admin Trade Name Freq PRN Reason Stop Dose Admin Acetaminophen 650 mg 03/09/21 15:03 03/12/21 04:23 Tylenol 325 Mg PO 04/08/21 15:02 650 mg Q4H PRN PRN Administration PAIN AND/OR FEVER Albuterol/Ipratropium 3 ml 03/09/21 15:03 Duoneb 0.5-3 Mg/3 Ml Neb IH 04/08/21 15:02 Q4HPRN PRN SHORTNESS OF BREATH/WHEEZING Allopurinol 300 mg 03/10/21 10:00 03/12/21 10:27 Zyloprim 300 Mg PO 04/09/21 09:59 300 mg DAILY MARCELLO Administration Amlodipine Besylate 5 mg 03/10/21 10:00 03/10/21 11:08 Norvasc 5 Mg PO 04/09/21 09:59 Not Given DAILY MARCELLO Amlodipine Besylate 5 mg 03/12/21 22:00 Norvasc 5 Mg PO 04/11/21 21:59 HS MARCELLO Aspirin 325 mg 03/09/21 18:03 03/09/21 18:04 Ecotrin 325 Mg PO 03/09/21 18:04 325 mg NOW ONE Administration Aspirin 81 mg 03/10/21 10:27 03/12/21 10:27 Ecotrin 81 Mg PO 04/09/21 10:26 81 mg DAILY MARCELLO Administration Clopidogrel Bisulfate 75 mg 03/10/21 10:27 03/12/21 10:27 Plavix 75 Mg Tablet PO 04/09/21 10:26 75 mg DAILY MARCELLO Administration Hydralazine HCl 50 mg 03/10/21 10:00 03/10/21 22:26 Apresoline 25 Mg Tablet PO 04/09/21 09:59 Not Given BID MARCELLO Hydralazine HCl 50 mg 03/11/21 09:59 03/12/21 04:20 Apresoline 25 Mg Tablet PO 04/10/21 09:57 50 mg Q6HPRN PRN Administration HYPERTENSION Hydralazine HCl 50 mg 03/12/21 11:59 Apresoline 25 Mg Tablet PO 04/11/21 11:58 BID MARCELLO Metoprolol Tartrate 100 mg 03/10/21 10:00 03/12/21 10:27 Lopressor 50 Mg PO 04/09/21 09:59 100 mg BID MARCELLO Administration Pantoprazole Sodium 40 mg 03/09/21 16:00 03/09/21 18:24 Protonix 40 Mg Iv IV 04/08/21 15:59 Not Given Q24H10 MARCELLO Pantoprazole Sodium 20 mg 03/10/21 10:00 03/12/21 10:27 Protonix 20mg Tablet PO 04/09/21 09:59 20 mg DAILY MARCELLO Administration Albuterol Inhaler 2 each 03/09/21 19:00 03/12/21 05:57 IH 04/08/21 18:59 2 each BIDRT MARCELLO Administration Intake & Output (Last 24 hours) 03/11/21 03/12/21 03/13/21 03/14/21 11:59 11:59 11:59 11:59 Intake Total 720 760 360 Output Total 750 2100 Balance -30 -1340 360 Weight 75.9 kg 77 kg Orders (Last 24 hours) Category Date Time Status Amlodipine Besylate 5 mg [Norvasc 5 mg] Med 03/12/21 22:00 Discontinued 5 mg PO HS - Vitals & Intake/Output Vital Signs: Vital Signs Temperature 97.4 F 03/12/21 16:00 Pulse Rate 69 03/12/21 16:00 Respiratory Rate 16 03/12/21 16:00 Blood Pressure 193/81 03/12/21 16:00 O2 Sat by Pulse Oximetry 97 03/12/21 16:00 Intake & Output: Intake & Output 03/11/21 03/12/21 03/13/21 03/14/21 11:59 11:59 11:59 11:59 Intake Total 720 760 360 Output Total 750 2100 Balance -30 -1340 360 Weight 75.9 kg 77 kg - Lab Result Diagrams: 03/10/21 06:10 03/12/21 04:37 - Radiology Exams Ordered Rad Exams-Entire Visit: Radiology Procedures Category Date Time Status MRA BRAIN WITHOUT CONTRAST [MRI] Routine Exams 03/12/21 15:37 Completed MRA NECK WITHOUT CONTRAST [MRI] Routine Exams 03/12/21 15:38 Completed MRI/MRA BRAIN WITHOUT CONTRAST Indication: Stroke. Multi-slab 3-D [id number] MRA [place] performed without contrast. 3-dimensional sagittal and coronal reformatted images obtained. Comparison: None Distal internal carotid arteries are bilaterally symmetric without critical stenosis, obstruction, or AV malformation. Normal carotid terminus with normal branching A1 and M1 segments bilaterally. More distal anterior cerebral and middle cerebral arteries are normal and MRA appearance. Anatomic variant for origin of the right posterior cerebral artery. Distal right vertebral artery is markedly attenuated and small presumed secondary to more proximal vertebral artery stenosis/obstruction. Distal left vertebral artery and basilar artery normal in MRA appearance. Normal branching left posterior cerebral, left/right superior cerebellar, and left/right anterior inferior cerebellar arteries. Impression: 1. Attenuated and small distal right vertebral artery presumed secondary to proximal vertebral artery stenosis/obstruction. 2. Anatomic variant origin right posterior cerebral artery. 3. Remaining MRA [place] is negative. MRI/MRA NECK WITHOUT CONTRAST Indication: Stroke. Multi-slab 3-D [id number] MRA carotid arteries of the neck performed without contrast. 3-dimensional sagittal and coronal reformatted images obtained. Comparison: None Left common carotid artery is normal in course and caliber without critical stenosis/obstruction. At the level of bulb, there is mild eccentric plaquing stenosis. This further extends into the origin/proximal internal carotid artery producing 70-80% stenosis. Remaining external carotid artery are normal in MRA appearance. Right common carotid, carotid bulb, internal carotid, national carotid arteries are normal in MRA appearance. Right vertebral artery is markedly attenuated and tapers off by C3 level. Left vertebral artery is normal in MRA appearance. Impression: 1. Left carotid bulb and left internal carotid artery eccentric plaquing producing 70-80% stenosis. 2. Attenuated right vertebral artery, tapering off by C3 level. 3. Remaining MRA right carotid circulation and left vertebral artery normal in MRA appearance. - Procedures and Test Procedures and Tests throughout Hospitalization: Therapy Orders & Screens 03/09/21 15:03 OT Eval and Treat (MD Order) ROUTINE Comment: Consulting Provider: Physician Instructions: Reason For Exam: 03/09/21 16:16 Respiratory Therapy Assessment DAILY Comment: Diagnosis: cva 03/09/21 19:00 Respiratory MDI BID Comment: ALBUTEROL 2 PUFFS BID PT'S HOME MDI Diagnosis: numbness on left side of body for 1 day Discharge Exam General Appearance: no apparent distress, alert Neurologic Exam: alert, 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, cooperative, normal mood/affect, nml cerebellar function, sensation nml, No motor deficits Eye Exam: PERRL, EOMI, eyes nml inspection Ears, Nose, Throat Exam: normal ENT inspection, pharynx normal, moist mucous membranes Neck Exam: normal inspection, non-tender, supple, full range of motion Respiratory Exam: normal breath sounds, lungs clear, No respiratory distress Cardiovascular Exam: regular rate/rhythm, normal heart sounds Gastrointestinal/Abdomen Exam: soft, No tenderness, No mass Pelvic Exam: deferred Rectal Exam: deferred Back Exam: normal inspection, normal range of motion, No CVA tenderness, No vertebral tenderness Extremity Exam: normal inspection, normal range of motion Skin Exam: normal color, warm, dry Final Diagnosis/Problem List - Final Discharge Diagnosis/Problem (1) Carotid artery stenosis, symptomatic Status: Acute Code(s): I65.29 - OCCLUSION AND STENOSIS OF UNSPECIFIED CAROTID ARTERY (2) TIA (transient ischemic attack) Status: Resolved Assessment & Plan: Last Vital Signs Temp 97.4 F 03/12/21 16:00 Pulse 69 03/12/21 16:00 Resp 16 03/12/21 16:00 BP 193/81 03/12/21 16:00 Pulse Ox 97 03/12/21 16:00 Allergies Sulfa (Sulfonamide Antibiotics) Allergy (Intermediate, Verified 03/09/21 11:24) cortisone Allergy (Mild, Verified 03/09/21 11:24) prednisone Allergy (Verified 03/09/21 11:24) Intake & Output 03/13/21 03/14/21 11:59 11:59 Intake Total 360 Balance 360 Code(s): G45.9 - TRANSIENT CEREBRAL ISCHEMIC ATTACK, UNSPECIFIED (3) Hypertension, poor control Status: Acute Code(s): I10 - ESSENTIAL (PRIMARY) HYPERTENSION - Discharge Discharge Date: 03/12/21 Disposition: Home, Self-Care Condition: Stable Prescriptions: New Aspirin EC 81 mg [Ecotrin 81 mg] 81 mg PO DAILY #30 tablet.ec Clopidogrel Bisulfate 75 mg [PLAVIX 75 MG Tablet] 75 mg PO DAILY #30 tablet Continue Hydralazine HCl 50 mg PO BID Metoprolol Tartrate 100 mg PO BID Allopurinol 300 mg [Zyloprim 300 mg] 300 mg PO DAILY Doxepin HCl 75 mg PO HS Amlodipine Besylate 5 mg [Norvasc 5 mg] 5 mg PO HS Esomeprazole Magnesium [Nexium] 20 mg PO DAILY Instructions: Transient Ischemic Attack (DC) Follow up with: RENATA WILKINSON MD [Primary Care Provider] - Forms: Discharge Instructions
== END 2021-03-12 19:00 | disposition home or self-care (01) ==
LOC: ED 10:53 → MED SURG 15:00
PROVIDERS: ADMIT General Practice; ATTEND General Practice
DX: I65.29 Occlusion and stenosis of unspecified carotid artery (principal); R47.81 Slurred speech; R20.0 Anesthesia of skin; Z79.899 Other long term (current) drug therapy; I10 Essential (primary) hypertension; J44.9 Chronic obstructive pulmonary disease, unspecified; E03.9 Hypothyroidism, unspecified; Z20.828 Contact with and (suspected) exposure to other viral communicable diseases
CPT/HCPCS: 0241U; 36000; 36415; 70450; 70544; 70547; 71045; 80048; 80053; 80061; 81001; 82947; 83036; 83721; 83880; 84443; 84484; 85025; 85610; 85730; 93005; 93041; 93268; 93306; 93880; 94640; 94760; 99285; 99291; G0378; Q3014; A9270-GY